=== PATIENT | male | born 1965 | race African-American/Black ===

== ENCOUNTER 2018-03-22 06:28 | Emergency (ER) | payer MEDICARE, MEDICAID ==
[~2018-03-22] VITALS: Ht 182.9 cm; Wt 104.0 kg
[~2018-03-22 06:28] MED LIST: ACET-2178 PO; KEPP500 PO; PANT40TA4 PO; PHEN100C12 MT; TEMOZOLOMIDE PO
[2018-03-22 09:10] VITALS: BP 130/83
== END 2018-03-22 09:15 | disposition home or self-care (01) ==
LOC: ER 06:28
DX: L29.9 Pruritus, unspecified (principal); Z88.0 Allergy status to penicillin; Z79.899 Other long term (current) drug therapy
CPT/HCPCS: 99283

== ENCOUNTER 2018-05-04 14:03 | Emergency (ER) | payer MEDICARE, MEDICAID ==
[~2018-05-04] VITALS: Ht 177.8 cm; Wt 90.0 kg
[2018-05-04] MEDS ORDERED: HYDROCODONE/ACETAMINOPHEN 5/325MG TABLET PO STA (15:09)
[2018-05-04 18:05] LABS: BASOPHILS % 0.6 % (0.0-2.0); EOSINOPHILS % 2.4 % (0.0-5.0); HEMATOCRIT. 38.1 % (42.0-52.0); HEMOGLOBIN. 12.3 g/dL (14.0-18.0); LYMPHOCYTES % 31.3 % (20.0-50.0); MEAN CORPUSCULAR HEMOGLOBIN 28.5 pg (28.0-32.0); MEAN CORPUSCULAR VOLUME 88.1 fL (80.0-94.0); MEAN PLATELET VOLUME 8.4 fl (7.4-10.4); MONOCYTES % 12.1 % (2.0-8.0); NEUTROPHILS % 53.6 % (40.0-76.0); PLATELET 207 x1000/uL (130-400); RED BLOOD CELL COUNT 4.32 mill/uL (4.7-6.1); RED CELL DISTRIBUTION WIDTH 14.8 % (11.6-14.6)
[2018-05-04 18:10] LABS: CHLORIDE 106 mEq/L (98-107)
[2018-05-04 18:11] LABS: INR 1.1
[2018-05-04 18:30] VITALS: BP 135/66
== END 2018-05-04 18:50 | disposition home or self-care (01) ==
LOC: ER 14:03
DX: R51 Headache (principal); I62.9 Nontraumatic intracranial hemorrhage, unspecified; R56.9 Unspecified convulsions; Z85.841 Personal history of malignant neoplasm of brain; Z98.890 Other specified postprocedural states; Z88.0 Allergy status to penicillin; Z79.899 Other long term (current) drug therapy
CPT/HCPCS: 36415; 99284

== ENCOUNTER 2018-05-13 01:20 | Emergency (ER) | payer MEDICARE, MEDICAID ==
[~2018-05-13] VITALS: Ht 185.4 cm; Wt 114.0 kg
[2018-05-13] MEDS ORDERED: VALACYCLOVIR HCL 500MG TABLET PO SCH (11:15)
[2018-05-13] MEDS ORDERED: HYDROCODONE/ACETAMINOPHEN 10/325MG TABLET PO ONE (11:15)
[2018-05-13] MEDS ORDERED: PREDNISONE 20MG TABLET PO ONE (11:30)
[2018-05-13 13:33] VITALS: BP 112/86
== END 2018-05-13 13:50 | disposition home or self-care (01) ==
LOC: ER 01:52
DX: B02.9 Zoster without complications (principal); Z98.890 Other specified postprocedural states; Z88.0 Allergy status to penicillin; Z79.899 Other long term (current) drug therapy
CPT/HCPCS: 99284; J7512

== ENCOUNTER 2018-05-30 16:28 | Inpatient (IN) | payer MEDICARE, MEDICAID ==
[~2018-05-30] VITALS: Ht 185.4 cm; Wt 132.5 kg
[2018-05-30] MEDS ORDERED: SODIUM CHLORIDE 0.9% 1,000 ML IV ONE (18:27)
[2018-05-30] MEDS ORDERED: LEVETIRACETAM 500MG PREMIX 100 ML IV ONE (18:30)
[2018-05-30 19:17] LABS: BASOPHILS % 0.2 % (0.0-2.0); CHLORIDE 104 mEq/L (98-107); EOSINOPHILS % 1.3 % (0.0-5.0); HEMATOCRIT. 39.3 % (42.0-52.0); HEMOGLOBIN. 13.1 g/dL (14.0-18.0); LYMPHOCYTES % 18.5 % (20.0-50.0); MEAN CORPUSCULAR HEMOGLOBIN 29.1 pg (28.0-32.0); MEAN CORPUSCULAR VOLUME 87.1 fL (80.0-94.0); MEAN PLATELET VOLUME 8.3 fl (7.4-10.4); MONOCYTES % 8.8 % (2.0-8.0); NEUTROPHILS % 71.2 % (40.0-76.0); PLATELET 275 x1000/uL (130-400); RED BLOOD CELL COUNT 4.51 mill/uL (4.7-6.1); RED CELL DISTRIBUTION WIDTH 15.4 % (11.6-14.6)
[2018-05-30] MEDS ORDERED: PHENYTOIN 100 MG/4 ML UDC NG ONE (19:45)
[2018-05-30] MEDS ORDERED: ACETAMINOPHEN 650MG/20.3ML UDC GT PRN (22:00)
[2018-05-30] MEDS ORDERED: DIPHENHYDRAMINE 50MG/ML VIAL IV PRN (22:00)
[2018-05-30] MEDS ORDERED: IPRATROPIUM/ALBUTEROL 0.5-3(2.5)MG/3ML NEB INH PRN (22:00)
[2018-05-30] MEDS ORDERED: CLONIDINE 0.1MG TABLET PO PRN (22:00)
[2018-05-30] MEDS ORDERED: DOCUSATE SODIUM 100MG CAPSULE PO PRN (22:00)
[2018-05-30] MEDS ORDERED: MAGNESIUM/ALUMINUM HYDROXIDE/SIMETHICONE 30ML UDC PO PRN (22:00)
[2018-05-30] MEDS ORDERED: ACETAMINOPHEN 650MG SUPP PR PRN (22:00)
[2018-05-30] MEDS ORDERED: GUAIFENESIN 200MG/10ML SUGAR FREE UDC PO PRN (22:00)
[2018-05-30] MEDS ORDERED: ONDANSETRON HCL 4MG/2ML INJ IV PRN (22:00)
[2018-05-30] MEDS ORDERED: ACETAMINOPHEN 325MG TABLET PO PRN (22:00)
[2018-05-30] MEDS ORDERED: HYDROCODONE/ACETAMINOPHEN 10/325MG TABLET PO PRN (22:00)
[2018-05-30] MEDS ORDERED: NA PHOS,M-B/NA PHOS,DI-BA ENEMA 118ML PR PRN (22:00)
[2018-05-30] MEDS ORDERED: LORAZEPAM 2MG/ML CPJ IV PRN (23:45)
[2018-05-31 01:00] VITALS: BP 115/77
[2018-05-31 04:19] VITALS: BP 110/80
[2018-05-31] MEDS: PHENYTOIN 100 MG/4 ML UDC PO SCH ×2 (05:50→13:34)
[2018-05-31] MEDS ORDERED: SODIUM CHLORIDE 0.9% INJ 3ML FLUSH IVF SCH (06:00)
[2018-05-31 06:52] LABS: BASOPHILS % 0.3 % (0.0-2.0); EOSINOPHILS % 1.9 % (0.0-5.0); HEMATOCRIT. 36.4 % (42.0-52.0); HEMOGLOBIN. 11.9 g/dL (14.0-18.0); LYMPHOCYTES % 24.7 % (20.0-50.0); MEAN CORPUSCULAR HEMOGLOBIN 28.2 pg (28.0-32.0); MEAN CORPUSCULAR VOLUME 86.4 fL (80.0-94.0); MEAN PLATELET VOLUME 7.9 fl (7.4-10.4); MONOCYTES % 10.8 % (2.0-8.0); NEUTROPHILS % 62.3 % (40.0-76.0); PLATELET 263 x1000/uL (130-400); RED BLOOD CELL COUNT 4.21 mill/uL (4.7-6.1); RED CELL DISTRIBUTION WIDTH 15.5 % (11.6-14.6)
[2018-05-31 07:06] LABS: CHLORIDE 106 mEq/L (98-107)
[2018-05-31 07:06] LABS: CLARITY URINE CLEAR (CLEAR); COLOR URINE YELLOW (YELLOW); KETONES URINE NEGATIVE (NEGATIVE); LEUKOCYTE ESTERASE URINE NEGATIVE (NEGATIVE); NITRITE URINE NEGATIVE (NEGATIVE); OCCULT BLOOD URINE NEGATIVE (NEGATIVE); PROTEIN URINE NEGATIVE (NEGATIVE); UROBILINOGEN URINE 0.2 E.U./dL (0.2-1.0)
[2018-05-31 07:18] LABS: *AMPHETAMINES SCREEN URINE NEGATIVE (NEGATIVE); *BARBITURATES SCREEN URINE NEGATIVE (NEGATIVE)
[2018-05-31 07:20] LABS: *BENZODIAZEPINES SCREEN URINE NEGATIVE (NEGATIVE); *COCAINE SCREEN URINE NEGATIVE (NEGATIVE); CANNABINOID URINE SCREEN NEGATIVE (NEGATIVE); METHADONE URINE SCREEN NEGATIVE (NEGATIVE); OPIATES URINE SCREEN NEGATIVE (NEGATIVE); PHENCYCLIDINE URINE SCREEN NEGATIVE (NEGATIVE)
[2018-05-31 07:43] LABS: LDL CHOLESTEROL 55 mg/dL (5-100)
[2018-05-31 07:46] LABS: HDL CHOLESTEROL 69 mg/dL (40-59)
[2018-05-31 08:00] VITALS: BP 117/82
[2018-05-31] MEDS ORDERED: LEVETIRACETAM 500MG/5ML CUP PO SCH (09:00)
[2018-05-31] MEDS: ENOXAPARIN 40MG/0.4ML SYR SUBCUT SCH ×2 (09:04→09:06)
[2018-05-31 12:00] VITALS: BP 111/68
[2018-05-31 13:16] VITALS: BP 111/68
== END 2018-05-31 14:45 | disposition home or self-care (01) | DRG 100 ==
LOC: ER 16:28 → 6WST 21:57 → EDBEDREQ 22:06 → EDBEDREQTM 22:06 → ENRESERV 23:40
PROVIDERS: ADMIT Family Medicine; ATTEND Family Medicine
DX: G40.909 Epilepsy, unspecified, not intractable, without status epilepticus (principal); G93.41 Metabolic encephalopathy; H54.3 Unqualified visual loss, both eyes; Z85.841 Personal history of malignant neoplasm of brain; Z82.3 Family history of stroke; Z86.19 Personal history of other infectious and parasitic diseases; Z88.0 Allergy status to penicillin; Z79.899 Other long term (current) drug therapy
CPT/HCPCS: 36415; 80061; 80185; 80305; 99285; J1650; J1953; J7030

== ENCOUNTER 2018-06-05 10:55 | Inpatient (IN) | payer MEDICARE, MEDICAID ==
[~2018-06-05] VITALS: Ht 177.8 cm; Wt 130.2 kg
[~2018-06-05 10:55] MED LIST changes: -KEPP500 PO; -PHEN100C12 MT
[2018-06-05] MEDS ORDERED: LEVETIRACETAM 500MG PREMIX 100 ML IV ONE (11:30)
[2018-06-05 11:48] LABS: BASOPHILS % 0.7 % (0.0-2.0); EOSINOPHILS % 1.2 % (0.0-5.0); HEMATOCRIT. 38.9 % (42.0-52.0); HEMOGLOBIN. 12.6 g/dL (14.0-18.0); LYMPHOCYTES % 18.7 % (20.0-50.0); MEAN CORPUSCULAR HEMOGLOBIN 28.4 pg (28.0-32.0); MEAN CORPUSCULAR VOLUME 87.5 fL (80.0-94.0); MEAN PLATELET VOLUME 7.9 fl (7.4-10.4); MONOCYTES % 7.7 % (2.0-8.0); NEUTROPHILS % 71.7 % (40.0-76.0); PLATELET 234 x1000/uL (130-400); RED BLOOD CELL COUNT 4.45 mill/uL (4.7-6.1); RED CELL DISTRIBUTION WIDTH 15.4 % (11.6-14.6)
[2018-06-05 11:51] LABS: CHLORIDE 107 mEq/L (98-107)
[2018-06-05 13:11] LABS: CLARITY URINE CLEAR (CLEAR); COLOR URINE YELLOW (YELLOW); KETONES URINE NEGATIVE (NEGATIVE); LEUKOCYTE ESTERASE URINE NEGATIVE (NEGATIVE); NITRITE URINE NEGATIVE (NEGATIVE); OCCULT BLOOD URINE NEGATIVE (NEGATIVE); PH URINE 7.5 (4.5-8.0); PROTEIN URINE 1+ (NEGATIVE); SPECIFIC GRAVITY URINE 1.012 (1.005-1.030); UROBILINOGEN URINE 0.2 E.U./dL (0.2-1.0)
[2018-06-05] MEDS ORDERED: HYDROCODONE/ACETAMINOPHEN 5/325MG TABLET PO ONE (14:00)
[2018-06-05] MEDS ORDERED: LORAZEPAM 0.5MG TABLET PO ONE (14:00)
[2018-06-05] MEDS ORDERED: ENOXAPARIN 40MG/0.4ML SYR SUBCUT SCH (15:15)
[2018-06-05] MEDS ORDERED: HYDRALAZINE 20MG/ML VIAL IV PRN (15:15)
[2018-06-05] MEDS ORDERED: HYDROCODONE/ACETAMINOPHEN 5/325MG TABLET PO PRN (15:15)
[2018-06-05] MEDS ORDERED: GUAIFENESIN 200MG/10ML SUGAR FREE UDC PO PRN (15:15)
[2018-06-05] MEDS ORDERED: DOCUSATE SODIUM 100MG CAPSULE PO PRN (15:15)
[2018-06-05] MEDS ORDERED: CLONIDINE 0.1MG TABLET PO PRN (15:15)
[2018-06-05] MEDS ORDERED: MAGNESIUM/ALUMINUM HYDROXIDE/SIMETHICONE 30ML UDC PO PRN (15:15)
[2018-06-05] MEDS ORDERED: NA PHOS,M-B/NA PHOS,DI-BA ENEMA 118ML PR PRN (15:15)
[2018-06-05] MEDS ORDERED: IPRATROPIUM/ALBUTEROL 0.5-3(2.5)MG/3ML NEB INH PRN (15:15)
[2018-06-05] MEDS ORDERED: HYDROMORPHONE HCL/PF 2MG/ML CPJ IV PRN (15:15)
[2018-06-05] MEDS ORDERED: DIPHENHYDRAMINE 50MG/ML VIAL IV PRN (15:15)
[2018-06-05] MEDS ORDERED: ONDANSETRON HCL 4MG/2ML INJ IV PRN (15:15)
[2018-06-05] MEDS ORDERED: ACETAMINOPHEN 325MG TABLET PO PRN (15:15)
[2018-06-05 20:00] VITALS: BP 108/62
[2018-06-05] MEDS: LORAZEPAM 2MG/ML CPJ IV PRN (21:25)
[2018-06-05] MEDS: ENOXAPARIN 30MG/0.3ML SYR SUBCUT SCH (21:25)
[2018-06-05] MEDS: SODIUM CHLORIDE 0.9% INJ 3ML FLUSH IVF SCH (21:26)
[2018-06-06] VITALS: BP 115/70
[2018-06-06 00:13] LABS: CREATINE KINASE 621 IU/L (39-308)
[2018-06-06 04:00] VITALS: BP 111/76
[2018-06-06] MEDS: LORAZEPAM 2MG/ML CPJ IV PRN ×2 (04:32→21:21)
[2018-06-06] MEDS: SODIUM CHLORIDE 0.9% INJ 3ML FLUSH IVF SCH ×3 (05:45→21:01)
[2018-06-06 07:23] LABS: BASOPHILS % 0.3 % (0.0-2.0); EOSINOPHILS % 1.4 % (0.0-5.0); HEMATOCRIT. 36.7 % (42.0-52.0); HEMOGLOBIN. 12.1 g/dL (14.0-18.0); LYMPHOCYTES % 26.4 % (20.0-50.0); MEAN CORPUSCULAR HEMOGLOBIN 28.4 pg (28.0-32.0); MEAN CORPUSCULAR VOLUME 86.1 fL (80.0-94.0); MEAN PLATELET VOLUME 8.2 fl (7.4-10.4); MONOCYTES % 9.3 % (2.0-8.0); NEUTROPHILS % 62.6 % (40.0-76.0); PLATELET 231 x1000/uL (130-400); RED BLOOD CELL COUNT 4.26 mill/uL (4.7-6.1)
[2018-06-06 07:31] LABS: CHLORIDE 108 mEq/L (98-107)
[2018-06-06 07:39] LABS: CREATINE KINASE 645 IU/L (39-308)
[2018-06-06 07:48] LABS: CREATINE KINASE MB FRACTION < 1.0 ng/mL (0.5-3.6)
[2018-06-06 08:00] VITALS: BP 127/87
[2018-06-06] MEDS: ASPIRIN 81MG EC TABLET PO SCH (09:44)
[2018-06-06] MEDS: ENOXAPARIN 30MG/0.3ML SYR SUBCUT SCH ×2 (09:49→21:00)
[2018-06-06 12:00] VITALS: BP 97/58
[2018-06-06] MEDS ORDERED: VALA500T55 MT (15:18)
[2018-06-06] MEDS ORDERED: RISP05 MT (15:18)
[2018-06-06] MEDS ORDERED: KEPP500 MT (15:18)
[2018-06-06] MEDS ORDERED: ROSU20TA MT (15:18)
[2018-06-06] MEDS ORDERED: PHEN300C6 MT (15:18)
[2018-06-06 16:00] VITALS: BP 102/60
[2018-06-06] MEDS: RISPERIDONE 0.5MG TABLET PO SCH (17:30)
[2018-06-06] MEDS: VALACYCLOVIR HCL 500MG TABLET PO SCH (17:39)
[2018-06-06 20:00] VITALS: BP 109/62
[2018-06-06] MEDS: ATORVASTATIN CALCIUM 40MG TABLET PO SCH (21:00)
[2018-06-06] MEDS ORDERED: PHENYTOIN SODIUM EXTENDED 100MG CAPSULE PO SCH (21:00)
[2018-06-06] MEDS ORDERED: LEVETIRACETAM 500MG TABLET PO SCH (21:00)
[2018-06-06] MEDS ORDERED: PHENYTOIN SODIUM MT SCH (21:00)
[2018-06-06] MEDS: LEVETIRACETAM 250MG TABLET PO SCH (21:00)
[2018-06-07] VITALS: BP 112/68
[2018-06-07 04:00] VITALS: BP 115/69
[2018-06-07] MEDS: SODIUM CHLORIDE 0.9% INJ 3ML FLUSH IVF SCH ×3 (06:43→21:10)
[2018-06-07 08:00] VITALS: BP 104/63
[2018-06-07] MEDS ORDERED: MEDICATION NOT ON FORMULARY EA (Rosuvastatin Calcium (Crestor) 1 TAB) MT SCH (09:00)
[2018-06-07] MEDS: VALACYCLOVIR HCL 500MG TABLET PO SCH (09:00)
[2018-06-07] MEDS: RISPERIDONE 0.5MG TABLET PO SCH ×2 (09:16→18:27)
[2018-06-07] MEDS: ASPIRIN 81MG EC TABLET PO SCH (09:16)
[2018-06-07] MEDS: LEVETIRACETAM 250MG TABLET PO SCH ×2 (09:16→21:09)
[2018-06-07] MEDS: ENOXAPARIN 30MG/0.3ML SYR SUBCUT SCH ×2 (09:17→21:09)
[2018-06-07 12:00] VITALS: BP 113/69
[2018-06-07 16:00] VITALS: BP 113/68
[2018-06-07 20:00] VITALS: BP 115/66
[2018-06-07] MEDS: ATORVASTATIN CALCIUM 40MG TABLET PO SCH (21:09)
[2018-06-07] MEDS: LORAZEPAM 2MG/ML CPJ IV PRN (21:11)
[2018-06-08] VITALS: BP 99/54
[2018-06-08 04:00] VITALS: BP 122/78
[2018-06-08] MEDS: SODIUM CHLORIDE 0.9% INJ 3ML FLUSH IVF SCH ×3 (06:19→22:13)
[2018-06-08 08:00] VITALS: BP 103/57
[2018-06-08] MEDS: RISPERIDONE 0.5MG TABLET PO SCH ×2 (08:43→17:53)
[2018-06-08] MEDS: ASPIRIN 81MG EC TABLET PO SCH (08:43)
[2018-06-08] MEDS: LEVETIRACETAM 250MG TABLET PO SCH ×2 (08:44→22:12)
[2018-06-08] MEDS: ENOXAPARIN 30MG/0.3ML SYR SUBCUT SCH ×2 (08:45→22:12)
[2018-06-08] MEDS: VALACYCLOVIR HCL 500MG TABLET PO SCH (09:00)
[2018-06-08 12:00] VITALS: BP 103/67
[2018-06-08 16:00] VITALS: BP 115/82
[2018-06-08 20:00] VITALS: BP 108/70
[2018-06-08] MEDS: ATORVASTATIN CALCIUM 40MG TABLET PO SCH (22:12)
[2018-06-09] VITALS: BP 106/63
[2018-06-09 04:00] VITALS: BP 109/57
[2018-06-09] MEDS: SODIUM CHLORIDE 0.9% INJ 3ML FLUSH IVF SCH ×3 (05:42→21:09)
[2018-06-09 08:00] VITALS: BP 99/65
[2018-06-09] MEDS: ASPIRIN 81MG EC TABLET PO SCH (11:20)
[2018-06-09] MEDS: ENOXAPARIN 30MG/0.3ML SYR SUBCUT SCH ×2 (11:20→21:09)
[2018-06-09] MEDS: RISPERIDONE 0.5MG TABLET PO SCH ×2 (11:20→18:51)
[2018-06-09] MEDS: VALACYCLOVIR HCL 500MG TABLET PO SCH (11:20)
[2018-06-09] MEDS: LEVETIRACETAM 250MG TABLET PO SCH ×2 (11:22→21:09)
[2018-06-09 12:00] VITALS: BP 92/62
[2018-06-09 16:00] VITALS: BP 92/51
[2018-06-09 20:00] VITALS: BP 106/59
[2018-06-09] MEDS: ATORVASTATIN CALCIUM 40MG TABLET PO SCH (21:09)
[2018-06-10] VITALS (7 sets, daily range): BP systolic 97–113; BP diastolic 58–69
[2018-06-10] MEDS: SODIUM CHLORIDE 0.9% INJ 3ML FLUSH IVF SCH ×2 (05:04→14:26)
[2018-06-10] MEDS: ASPIRIN 81MG EC TABLET PO SCH (08:40)
[2018-06-10] MEDS: ENOXAPARIN 30MG/0.3ML SYR SUBCUT SCH (08:41)
[2018-06-10] MEDS: LEVETIRACETAM 250MG TABLET PO SCH (08:41)
[2018-06-10] MEDS: RISPERIDONE 0.5MG TABLET PO SCH ×2 (08:41→19:43)
[2018-06-10] MEDS: VALACYCLOVIR HCL 500MG TABLET PO SCH (08:41)
== END 2018-06-10 20:35 | DRG 101 ==
LOC: ER 10:55 → 7WST 13:48 → ENRESERV 15:36
PROVIDERS: ADMIT Internal Medicine; ATTEND Internal Medicine
DX: G40.909 Epilepsy, unspecified, not intractable, without status epilepticus (principal); C71.9 Malignant neoplasm of brain, unspecified; H54.7 Unspecified visual loss; Z79.899 Other long term (current) drug therapy; Z85.841 Personal history of malignant neoplasm of brain; Z88.0 Allergy status to penicillin; Z92.3 Personal history of irradiation; Z92.21 Personal history of antineoplastic chemotherapy
CPT/HCPCS: 36415; 82550; 82553; 84484; 96365; 99285; C1893; J1650; J1953; J2060

== ENCOUNTER 2018-07-21 13:08 | Emergency (ER) | payer MEDICARE, MEDICAID ==
[~2018-07-21] VITALS: Ht 182.9 cm; Wt 100.0 kg
[~2018-07-21 13:08] MED LIST changes: +KEPP500 MT; +PHEN300C6 MT; +RISP05 MT; +ROSU20TA MT; +VALA500T55 MT
[2018-07-21] MEDS ORDERED: ACETAMINOPHEN 325MG TABLET PO ONE (13:45)
[2018-07-21 14:23] LABS: BASOPHILS % 0.4 % (0.0-2.0); EOSINOPHILS % 3.2 % (0.0-5.0); LYMPHOCYTES % 27.2 % (20.0-50.0); MEAN CORPUSCULAR VOLUME 86.4 fL (80.0-94.0); MEAN PLATELET VOLUME 8.2 fl (7.4-10.4); MONOCYTES % 10.3 % (2.0-8.0); NEUTROPHILS % 58.9 % (40.0-76.0); PLATELET 204 x1000/uL (130-400); RED BLOOD CELL COUNT 4.64 mill/uL (4.7-6.1); RED CELL DISTRIBUTION WIDTH 15.8 % (11.6-14.6)
[2018-07-21 14:26] LABS: CHLORIDE 110 mEq/L (98-107)
[2018-07-21 14:28] LABS: PARTIAL THROMBOPLASTIN TIME 29.9 sec (23.4-31.0); PROTHROMBIN TIME 10.7 sec (9.6-11.0)
[2018-07-21] MEDS ORDERED: PHENYTOIN SODIUM 1,000 MG in SODIUM CHLORIDE 0.9% 100 ML IV ONE (14:45)
[2018-07-21] MEDS ORDERED: PHENYTOIN SODIUM 1,000 MG in SODIUM CHLORIDE 0.9% 80 ML IV ONE (15:01)
[2018-07-21 17:10] VITALS: BP 128/87
== END 2018-07-21 18:02 | disposition home or self-care (01) ==
LOC: ER 13:08
DX: R51 Headache (principal); R03.0 Elevated blood-pressure reading, without diagnosis of hypertension; Z85.841 Personal history of malignant neoplasm of brain; I69.298 Other sequelae of other nontraumatic intracranial hemorrhage; G40.909 Epilepsy, unspecified, not intractable, without status epilepticus; R89.2 Abnormal level of other drugs, medicaments and biological substances in specimens from other organs, systems and tissues
CPT/HCPCS: 36415; 70450; 71045; 80053; 80185; 85025; 85610; 85730; 93005; 96365; 99284; J1165; J7050

== ENCOUNTER 2018-10-09 13:57 | Emergency (ER) | payer MEDICARE, MEDICAID ==
[~2018-10-09] VITALS: Ht 180.3 cm; Wt 110.0 kg
[~2018-10-09 13:57] MED LIST changes: -ROSU20TA MT; +ROSU20TA2 MT
[2018-10-09] MEDS ORDERED: METOCLOPRAMIDE HCL 10MG/2ML VIAL IV ONE (16:45)
[2018-10-09] MEDS ORDERED: SODIUM CHLORIDE 0.9% 100 ML IV ONE (16:45)
[2018-10-09] MEDS ORDERED: DIPHENHYDRAMINE 50MG/ML VIAL IV ONE (16:45)
[2018-10-09 17:24] LABS: BASOPHILS % 0.4 % (0.0-2.0); EOSINOPHILS % 0.6 % (0.0-5.0); HEMATOCRIT. 43.7 % (42.0-52.0); HEMOGLOBIN. 14.6 g/dL (14.0-18.0); LYMPHOCYTES % 18.1 % (20.0-50.0); MEAN CORPUSCULAR HEMOGLOBIN 28.9 pg (28.0-32.0); MEAN CORPUSCULAR VOLUME 86.6 fL (80.0-94.0); MEAN PLATELET VOLUME 7.9 fl (7.4-10.4); MONOCYTES % 6.8 % (2.0-8.0); NEUTROPHILS % 74.1 % (40.0-76.0); PLATELET 229 x1000/uL (130-400); RED BLOOD CELL COUNT 5.05 mill/uL (4.7-6.1)
[2018-10-09 17:28] LABS: CHLORIDE 102 mEq/L (98-107)
[2018-10-09 17:29] LABS: PROTHROMBIN TIME 10.7 sec (9.6-11.0)
[2018-10-09 21:17] VITALS: BP 138/85
== END 2018-10-09 22:00 | disposition home or self-care (01) ==
LOC: ER 13:57 → CANBEDREQ 20:01 → ER 22:00
DX: R51 Headache (principal); R03.0 Elevated blood-pressure reading, without diagnosis of hypertension; R90.82 White matter disease, unspecified; G31.9 Degenerative disease of nervous system, unspecified
CPT/HCPCS: 36415; 70450; 80053; 85025; 85610; 96374; 96375; 99284; J1200; J2765; J7050

== ENCOUNTER 2019-04-13 10:26 | Inpatient (IN) | payer MEDICARE, MEDICAID ==
[~2019-04-13] VITALS: Ht 185.4 cm; Wt 127.0 kg
[~2019-04-13 10:26] MED LIST changes: -ACET-2178 PO; +TOPUD PO
[2019-04-13] MEDS ORDERED: SODIUM CHLORIDE 0.9% 1,000 ML IV ONE (10:54)
[2019-04-13] MEDS ORDERED: LEVETIRACETAM 500MG PREMIX 100 ML IV ONE (11:00)
[2019-04-13 11:35] LABS: BASOPHILS % 0.4 % (0.0-2.0); EOSINOPHILS % 2.7 % (0.0-5.0); HEMATOCRIT. 39.5 % (42.0-52.0); LYMPHOCYTES % 26.3 % (20.0-50.0); MEAN CORPUSCULAR HEMOGLOBIN 27.4 pg (28.0-32.0); MEAN PLATELET VOLUME 8.3 fl (7.4-10.4); MONOCYTES % 8.9 % (2.0-8.0); NEUTROPHILS % 61.7 % (40.0-76.0); PLATELET 216 x1000/uL (130-400); RED BLOOD CELL COUNT 4.75 mill/uL (4.7-6.1); RED CELL DISTRIBUTION WIDTH 15.9 % (11.6-14.6)
[2019-04-13 11:40] LABS: CHLORIDE 108 mEq/L (98-107)
[2019-04-13 11:41] LABS: PROTHROMBIN TIME 10.6 sec (9.6-11.0)
[2019-04-13 11:50] LABS: CREATINE KINASE 662 IU/L (39-308)
[2019-04-13 13:23] LABS: CLARITY URINE CLEAR (CLEAR); COLOR URINE YELLOW (YELLOW); KETONES URINE NEGATIVE (NEGATIVE); LEUKOCYTE ESTERASE URINE NEGATIVE (NEGATIVE); NITRITE URINE NEGATIVE (NEGATIVE); OCCULT BLOOD URINE NEGATIVE (NEGATIVE); PROTEIN URINE NEGATIVE (NEGATIVE); SPECIFIC GRAVITY URINE 1.017 (1.005-1.030)
[2019-04-13] MEDS ORDERED: LORAZEPAM 2MG/ML CPJ IV PRN (18:00)
[2019-04-13] MEDS ORDERED: HYDROCODONE/ACETAMINOPHEN 5/325MG TABLET PO PRN (18:00)
[2019-04-13] MEDS ORDERED: ACETAMINOPHEN 325MG TABLET PO PRN (18:00)
[2019-04-13] MEDS ORDERED: ONDANSETRON HCL 4MG/2ML INJ IV PRN (18:00)
[2019-04-13] MEDS ORDERED: CLONIDINE 0.1MG TABLET PO PRN (18:00)
[2019-04-13] MEDS ORDERED: GUAIFENESIN 200MG/10ML SUGAR FREE UDC PO PRN (18:00)
[2019-04-13] MEDS ORDERED: PNEUMOCOCCAL 23-VAL P-SAC VAC 0.5 ML IM ONE (20:45)
[2019-04-13] MEDS ORDERED: INFLUENZA VIRUS VACCINE(AFLURIA) 0.5ML SYR IM ONE (20:45)
[2019-04-13 21:05] VITALS: BP 131/87
[2019-04-13] MEDS: PHENYTOIN SODIUM 100MG/2ML VIAL IV SCH (23:06)
[2019-04-13] MEDS: SODIUM CHLORIDE 0.45% 1,000 ML IV SCH (23:07)
[2019-04-14] VITALS: BP 144/72
[2019-04-14] MEDS: LEVETIRACETAM 500MG PREMIX 100 ML IV SCH ×3 (01:01→21:43)
[2019-04-14 04:00] VITALS: BP 140/89
[2019-04-14 06:48] LABS: BASOPHILS % 0.5 % (0.0-2.0); EOSINOPHILS % 1.6 % (0.0-5.0); HEMATOCRIT. 39.5 % (42.0-52.0); HEMOGLOBIN. 13.4 g/dL (14.0-18.0); LYMPHOCYTES % 19.6 % (20.0-50.0); MEAN CORPUSCULAR HEMOGLOBIN 28.4 pg (28.0-32.0); MONOCYTES % 8.6 % (2.0-8.0); NEUTROPHILS % 69.7 % (40.0-76.0); RED BLOOD CELL COUNT 4.71 mill/uL (4.7-6.1); RED CELL DISTRIBUTION WIDTH 15.7 % (11.6-14.6)
[2019-04-14 07:03] LABS: CHLORIDE 110 mEq/L (98-107)
[2019-04-14 08:00] VITALS: BP 106/76
[2019-04-14] MEDS: PHENYTOIN SODIUM 100MG/2ML VIAL IV SCH ×4 (08:01→21:43)
[2019-04-14] MEDS: PANTOPRAZOLE SODIUM 40 MG/VIAL IV SCH (08:42)
[2019-04-14] MEDS: ENOXAPARIN 40MG/0.4ML SYR SUBCUT SCH ×2 (08:43→21:44)
[2019-04-14] MEDS: SODIUM CHLORIDE 0.45% 1,000 ML IV SCH (08:43)
[2019-04-14 09:11] LABS: MEAN PLATELET VOLUME 8.5 fl (7.4-10.4); PLATELET 162 x1000/uL (130-400)
[2019-04-14 12:00] VITALS: BP 124/78
[2019-04-14 15:52] VITALS: BP 101/53
[2019-04-14 20:00] VITALS: BP 128/87
[2019-04-15] VITALS: BP 143/89
[2019-04-15] MEDS: SODIUM CHLORIDE 0.45% 1,000 ML IV SCH (00:04)
[2019-04-15 04:00] VITALS: BP 107/65
[2019-04-15] MEDS: PHENYTOIN SODIUM 100MG/2ML VIAL IV SCH ×2 (06:10→22:09)
[2019-04-15 08:00] VITALS: BP 115/81
[2019-04-15] MEDS: ENOXAPARIN 40MG/0.4ML SYR SUBCUT SCH (08:36)
[2019-04-15] MEDS: PANTOPRAZOLE SODIUM 40 MG/VIAL IV SCH (08:36)
[2019-04-15] MEDS: LEVETIRACETAM 500MG PREMIX 100 ML IV SCH (08:36)
[2019-04-15 12:00] VITALS: BP 94/61
[2019-04-15] MEDS ORDERED: PHENYTOIN SODIUM 1,000 MG in SODIUM CHLORIDE 0.9% 100 ML IV SCH (15:00)
[2019-04-15 16:00] VITALS: BP 92/64
[2019-04-15 20:00] VITALS: BP 138/78
[2019-04-15] MEDS: FAMOTIDINE 20MG TABLET PO SCH (21:14)
[2019-04-15] MEDS: LEVETIRACETAM 500MG/5ML CUP PO SCH (21:14)
[2019-04-15] MEDS: ENOXAPARIN 30MG/0.3ML SYR SUBCUT SCH (21:14)
[2019-04-16] VITALS: BP 105/68
[2019-04-16 04:00] VITALS: BP 98/67
[2019-04-16] MEDS: PHENYTOIN SODIUM 100MG/2ML VIAL IV SCH (06:12)
[2019-04-16 07:12] LABS: BASOPHILS % 0.5 % (0.0-2.0); EOSINOPHILS % 2.9 % (0.0-5.0); HEMATOCRIT. 40.6 % (42.0-52.0); HEMOGLOBIN. 13.2 g/dL (14.0-18.0); MEAN CORPUSCULAR HEMOGLOBIN 27.2 pg (28.0-32.0); MEAN CORPUSCULAR VOLUME 83.8 fL (80.0-94.0); MEAN PLATELET VOLUME 8.2 fl (7.4-10.4); MONOCYTES % 12.3 % (2.0-8.0); NEUTROPHILS % 57.3 % (40.0-76.0); PLATELET 203 x1000/uL (130-400); RED BLOOD CELL COUNT 4.85 mill/uL (4.7-6.1); RED CELL DISTRIBUTION WIDTH 15.6 % (11.6-14.6)
[2019-04-16 08:00] VITALS: BP 116/74
[2019-04-16 08:10] LABS: CHLORIDE 108 mEq/L (98-107)
[2019-04-16] MEDS: FAMOTIDINE 20MG TABLET PO SCH (08:22)
[2019-04-16] MEDS: ENOXAPARIN 30MG/0.3ML SYR SUBCUT SCH (08:22)
[2019-04-16] MEDS: LEVETIRACETAM 500MG/5ML CUP PO SCH (08:28)
[2019-04-16 11:41] VITALS: BP 116/74
[2019-04-16 12:00] VITALS: BP 113/73
[2019-04-16] MEDS ORDERED: PHENYTOIN SODIUM EXTENDED 100MG CAPSULE PO SCH (14:00)
== END 2019-04-16 15:55 | DRG 100 ==
LOC: ER 10:26 → 5WST 13:58 → EDBEDREQ 14:03 → ENRESERV 18:45 → 5WST 04-14 03:40
PROVIDERS: ADMIT Hospitalist; ATTEND Hospitalist
DX: G40.909 Epilepsy, unspecified, not intractable, without status epilepticus (principal); G93.41 Metabolic encephalopathy; E78.5 Hyperlipidemia, unspecified; F20.9 Schizophrenia, unspecified; I10 Essential (primary) hypertension; I25.10 Atherosclerotic heart disease of native coronary artery without angina pectoris; Z85.841 Personal history of malignant neoplasm of brain; Z88.0 Allergy status to penicillin; Z79.899 Other long term (current) drug therapy
CPT/HCPCS: 36415; 71045; 80048; 80053; 80185; 81003; 82140; 82550; 82962; 84484; 85025; 90686; 90732; 93005; 93970; 96365; 99285; C1893; C9113; J1165; J1650; J1953; J7030; J7050

== ENCOUNTER 2019-07-19 09:09 | Inpatient (IN) | payer MEDICARE, MEDICAID ==
[~2019-07-19] VITALS: Ht 193 cm; Wt 137.9 kg
[~2019-07-19 09:09] MED LIST changes: -TEMOZOLOMIDE PO; -VALA500T55 MT
[2019-07-19] MEDS ORDERED: SODIUM CHLORIDE 0.9% 1,000 ML IV ONE (09:55)
[2019-07-19] MEDS ORDERED: LEVETIRACETAM 500MG PREMIX 100 ML IV ONE ×2 (10:00→12:30)
[2019-07-19 10:29] LABS: CLARITY URINE CLEAR (CLEAR); COLOR URINE YELLOW (YELLOW); KETONES URINE NEGATIVE (NEGATIVE); LEUKOCYTE ESTERASE URINE NEGATIVE (NEGATIVE); NITRITE URINE NEGATIVE (NEGATIVE); OCCULT BLOOD URINE NEGATIVE (NEGATIVE); PH URINE 6.5 (4.5-8.0); PROTEIN URINE 1+ (NEGATIVE); SPECIFIC GRAVITY URINE 1.014 (1.005-1.030); UROBILINOGEN URINE 0.2 E.U./dL (0.2-1.0)
[2019-07-19 10:32] LABS: CHLORIDE 107 mEq/L (98-107)
[2019-07-19 10:37] LABS: ETHANOL BLOOD < 10 mg/dL
[2019-07-19 10:40] LABS: BASOPHILS % 0.4 % (0.0-2.0); EOSINOPHILS % 0.7 % (0.0-5.0); HEMATOCRIT. 40.1 % (42.0-52.0); LYMPHOCYTES % 15.7 % (20.0-50.0); MEAN CORPUSCULAR HEMOGLOBIN 27.2 pg (28.0-32.0); MEAN CORPUSCULAR VOLUME 83.6 fL (80.0-94.0); MEAN PLATELET VOLUME 8.3 fl (7.4-10.4); MONOCYTES % 11.6 % (2.0-8.0); NEUTROPHILS % 71.6 % (40.0-76.0); PLATELET 197 x1000/uL (130-400); RED BLOOD CELL COUNT 4.79 mill/uL (4.7-6.1); RED CELL DISTRIBUTION WIDTH 15.6 % (11.6-14.6)
[2019-07-19] MEDS ORDERED: PHENYTOIN SODIUM 100MG/2ML VIAL IV ONE (11:45)
[2019-07-19 12:23] LABS: *AMPHETAMINES SCREEN URINE NEGATIVE (NEGATIVE); *BARBITURATES SCREEN URINE NEGATIVE (NEGATIVE); *BENZODIAZEPINES SCREEN URINE PRESUMTIVE POSITIVE (NEGATIVE); *COCAINE SCREEN URINE NEGATIVE (NEGATIVE); METHADONE URINE SCREEN NEGATIVE (NEGATIVE); OPIATES URINE SCREEN NEGATIVE (NEGATIVE)
[2019-07-19 12:24] LABS: CANNABINOID URINE SCREEN NEGATIVE (NEGATIVE); PHENCYCLIDINE URINE SCREEN NEGATIVE (NEGATIVE)
[2019-07-19] MEDS ORDERED: LORAZEPAM 2MG/ML CPJ IV ONE (12:30)
[2019-07-19] MEDS ORDERED: HYDROCODONE/ACETAMINOPHEN 5/325MG TABLET PO PRN (12:30)
[2019-07-19] MEDS ORDERED: ENOXAPARIN 40MG/0.4ML SYR SUBCUT SCH (12:30)
[2019-07-19] MEDS ORDERED: DOCUSATE SODIUM 100MG CAPSULE PO PRN (12:30)
[2019-07-19] MEDS ORDERED: ONDANSETRON HCL 4MG/2ML INJ IV PRN (12:30)
[2019-07-19] MEDS ORDERED: ENOXAPARIN 30MG/0.3ML SYR SUBCUT SCH (13:00)
[2019-07-19] MEDS: SODIUM CHLORIDE 0.45% 1,000 ML IV SCH (13:00)
[2019-07-19] MEDS ORDERED: PHENYTOIN SODIUM 1,000 MG in SODIUM CHLORIDE 0.9% 100 ML IV SCH (13:00)
[2019-07-19] MEDS: LEVETIRACETAM 500MG PREMIX 100 ML IV SCH (21:00)
[2019-07-20] VITALS (18 sets, daily range): BP systolic 116–146; BP diastolic 74–99
[2019-07-20] MEDS: SODIUM CHLORIDE 0.45% 1,000 ML IV SCH ×2 (02:20→05:00)
[2019-07-20 06:00] LABS: BASOPHILS % 0.4 % (0.0-2.0); EOSINOPHILS % 1.1 % (0.0-5.0); HEMATOCRIT. 41.5 % (42.0-52.0); HEMOGLOBIN. 13.7 g/dL (14.0-18.0); LYMPHOCYTES % 18.2 % (20.0-50.0); MEAN CORPUSCULAR HEMOGLOBIN 27.1 pg (28.0-32.0); MEAN CORPUSCULAR VOLUME 82.3 fL (80.0-94.0); MEAN PLATELET VOLUME 8.4 fl (7.4-10.4); MONOCYTES % 8.7 % (2.0-8.0); NEUTROPHILS % 71.6 % (40.0-76.0); PLATELET 208 x1000/uL (130-400); RED BLOOD CELL COUNT 5.04 mill/uL (4.7-6.1); RED CELL DISTRIBUTION WIDTH 15.4 % (11.6-14.6)
[2019-07-20 06:01] LABS: CHLORIDE 108 mEq/L (98-107)
[2019-07-20] MEDS ORDERED: LORAZEPAM 2MG/ML CPJ ONE (06:38)
[2019-07-20] MEDS: PHENYTOIN SODIUM 100MG/2ML VIAL IV SCH ×3 (08:50→17:57)
[2019-07-20] MEDS: LEVETIRACETAM 500MG PREMIX 100 ML IV SCH ×2 (08:50→20:54)
[2019-07-20] MEDS: LORAZEPAM 2MG/ML CPJ IV PRN ×2 (09:43→17:57)
[2019-07-20] MEDS ORDERED: LORAZEPAM 2MG/ML CPJ IV ONE (10:15)
[2019-07-20] MEDS ORDERED: PHENYTOIN SODIUM 500 MG in SODIUM CHLORIDE 0.9% 50 ML IV ONE (11:30)
[2019-07-20] MEDS ORDERED: PROPOFOL 10MG/ML 100ML 100 ML IV ONE (12:15)
[2019-07-20] MEDS ORDERED: SUCCINYLCHOLINE CHLORIDE 200MG/10ML IV ONE (12:15)
[2019-07-20] MEDS ORDERED: ETOMIDATE 2MG/ML 10ML VIAL IV ONE (12:15)
[2019-07-20] MEDS ORDERED: MIDAZOLAM HCL 50 MG in DEXTROSE 5% WATER 40 ML IV ONE (13:00)
[2019-07-20] MEDS ORDERED: MIDAZOLAM HCL 50 MG in DEXTROSE 5% WATER 40 ML IV NR (13:30)
[2019-07-20 13:37] LABS: BG BASE EXCESS -1.3 mmol/L (-2.0-2.0); BG CARBOXYHEMOGLOBIN 0.4 % (0.5-1.5); BG DEOXYHEMOGLOBIN 3.6 % (0.0-5.0); BG FRACTION INSPIRED OXYGEN 100; BG METHEMOGLOBIN 0.3 % (0.0-1.5); BG OXYGEN SATURATION 96.4 % (92.0-98.5); BG OXYHEMOGLOBIN 95.7 % (94.0-97.0); BG PCO2 42.5 mmHg (35.0-45.0); BG PO2 84.7 mmHg (75.0-100.0); BG SAMPLE SITE RIGHT RADIAL; BG TIDAL VOLUME(mL) 550 mL; BG TOTAL HEMOGLOBIN 14.5 g/dL (12.0-18.0); BG VENT MODE VENT - A/C; BG VENT RATE 16 set
[2019-07-20] MEDS ORDERED: FENTANYL CITRATE/PF 1,000 MCG in SODIUM CHLORIDE 0.9% 80 ML IV PRN (14:00)
[2019-07-20] MEDS ORDERED: MIDAZOLAM HCL 100 MG in DEXT 5% WATER 80 ML IV PRN ×2 (14:00→18:30)
[2019-07-20] MEDS ORDERED: METRONIDAZOLE 500MG TABLET PO SCH (14:20)
[2019-07-20] MEDS ORDERED: LEVOFLOXACIN 750MG PREMIX 150 ML IV SCH (14:30)
[2019-07-20] MEDS: FENTANYL CITRATE/PF 1,000 MCG in SODIUM CHLORIDE 0.9% 80 ML IV PRN (18:00)
[2019-07-20] MEDS: PROPOFOL 10MG/ML 100ML 100 ML IV PRN ×3 (19:33→23:00)
[2019-07-20 19:43] LABS: HEMATOCRIT 44.1 % (42.0-52.0); HEMOGLOBIN 14.6 g/dL (14.0-18.0); MEAN CORPUSCULAR HEMOGLOBIN 27.5 pg (28.0-32.0); MEAN CORPUSCULAR VOLUME 83.1 fL (80.0-94.0); PLATELET 228 x1000/uL (130-400); RED BLOOD CELL COUNT 5.31 mill/uL (4.7-6.1); RED CELL DISTRIBUTION WIDTH 16.1 % (11.6-14.6)
[2019-07-20] MEDS: PANTOPRAZOLE SODIUM 40 MG/VIAL IV SCH (20:46)
[2019-07-20] MEDS: METRONIDAZOLE 500MG TABLET PO SCH (21:52)
[2019-07-21] VITALS (57 sets, daily range): BP systolic 109–145; BP diastolic 66–82
[2019-07-21] MEDS: PROPOFOL 10MG/ML 100ML 100 ML IV PRN ×10 (00:59→21:22)
[2019-07-21] MEDS: SODIUM CHLORIDE 0.45% 1,000 ML IV SCH ×2 (05:00→16:18)
[2019-07-21] MEDS: METRONIDAZOLE 500MG TABLET PO SCH ×2 (06:14→14:00)
[2019-07-21] MEDS: FENTANYL CITRATE/PF 1,000 MCG in SODIUM CHLORIDE 0.9% 80 ML IV PRN ×2 (08:06→08:10)
[2019-07-21] MEDS: LEVETIRACETAM 500MG PREMIX 100 ML IV SCH ×2 (08:20→21:40)
[2019-07-21] MEDS: PHENYTOIN SODIUM 100MG/2ML VIAL IV SCH ×3 (08:21→16:17)
[2019-07-21] MEDS: PANTOPRAZOLE SODIUM 40 MG/VIAL IV SCH ×2 (08:21→21:39)
[2019-07-21 08:40] LABS: BG BASE EXCESS -0.8 mmol/L (-2.0-2.0); BG CARBOXYHEMOGLOBIN 0.4 % (0.5-1.5); BG DEOXYHEMOGLOBIN 0.5 % (0.0-5.0); BG FRACTION INSPIRED OXYGEN 100; BG HCO3 ACT 23.9 mmol/L (22.0-26.0); BG METHEMOGLOBIN 0.1 % (0.0-1.5); BG OXYGEN SATURATION 99.5 % (92.0-98.5); BG PCO2 39.4 mmHg (35.0-45.0); BG SAMPLE SITE RIGHT RADIAL; BG TIDAL VOLUME(mL) 550 mL; BG TOTAL HEMOGLOBIN 13.3 g/dL (12.0-18.0); BG VENT MODE VENT - A/C; BG VENT RATE 16 set
[2019-07-21] MEDS ORDERED: LEVOFLOXACIN 750MG PREMIX 150 ML IV SCH (14:30)
[2019-07-21] MEDS: LORAZEPAM 2MG/ML CPJ IV PRN ×2 (16:17→20:39)
[2019-07-21] MEDS: METRONIDAZOLE 500 MG PREMIX 100 ML IV SCH (20:30)
[2019-07-21] MEDS: ACETAMINOPHEN 325MG TABLET PO PRN (23:46)
[2019-07-22] VITALS (96 sets, daily range): BP systolic 106–153; BP diastolic 55–91
[2019-07-22] MEDS: PROPOFOL 10MG/ML 100ML 100 ML IV PRN ×10 (00:06→21:59)
[2019-07-22] MEDS: LORAZEPAM 2MG/ML CPJ IV PRN ×3 (00:42→23:05)
[2019-07-22] MEDS: METRONIDAZOLE 500 MG PREMIX 100 ML IV SCH ×2 (03:48→12:41)
[2019-07-22] MEDS: SODIUM CHLORIDE 0.45% 1,000 ML IV SCH (06:40)
[2019-07-22] MEDS: DOCUSATE SODIUM SUGAR FREE 100MG/10ML UDC NG SCH (09:54)
[2019-07-22] MEDS: PANTOPRAZOLE SODIUM 40 MG/VIAL IV SCH ×2 (09:54→21:40)
[2019-07-22] MEDS: LEVETIRACETAM 500MG PREMIX 100 ML IV SCH (09:54)
[2019-07-22] MEDS: PHENYTOIN SODIUM 100MG/2ML VIAL IV SCH ×3 (09:54→17:32)
[2019-07-22 10:35] LABS: BG BASE EXCESS -2.5 mmol/L (-2.0-2.0); BG CARBOXYHEMOGLOBIN 0.4 % (0.5-1.5); BG FRACTION INSPIRED OXYGEN 80; BG HCO3 ACT 21.4 mmol/L (22.0-26.0); BG METHEMOGLOBIN 0.2 % (0.0-1.5); BG OXYHEMOGLOBIN 97.4 % (94.0-97.0); BG PCO2 34.5 mmHg (35.0-45.0); BG PH 7.411 (7.350-7.450); BG PO2 103.6 mmHg (75.0-100.0); BG SAMPLE SITE RIGHT RADIAL; BG TIDAL VOLUME(mL) 550 mL; BG TOTAL HEMOGLOBIN 13.7 g/dL (12.0-18.0); BG VENT MODE VENT - A/C; BG VENT RATE 16 set
[2019-07-22] MEDS: LEVETIRACETAM 1,000 MG in SODIUM CHLORIDE 0.9% 100 ML IV SCH ×2 (12:00→20:47)
[2019-07-22] MEDS: ACETAMINOPHEN 325MG TABLET PO PRN ×2 (12:39→17:33)
[2019-07-22] MEDS: DEXT 5%/0.45% NACL 1000ML 1,000 ML IV SCH ×2 (12:47→23:50)
[2019-07-22] MEDS: FENTANYL CITRATE/PF 1,000 MCG in SODIUM CHLORIDE 0.9% 80 ML IV PRN (16:02)
[2019-07-22] MEDS: CLINDAMYCIN 600MG PREMIX 50 ML IV SCH ×2 (16:35→22:26)
[2019-07-22] MEDS: AZTREONAM 1 G in DEXTROSE 5% WATER 50 ML IV SCH ×2 (16:35→21:42)
[2019-07-23] VITALS (62 sets, daily range): BP systolic 108–174; BP diastolic 41–132
[2019-07-23] MEDS: PROPOFOL 10MG/ML 100ML 100 ML IV PRN ×7 (01:55→22:03)
[2019-07-23] MEDS: LORAZEPAM 2MG/ML CPJ IV PRN ×2 (03:56→08:30)
[2019-07-23] MEDS: ACETAMINOPHEN 325MG TABLET PO PRN (03:56)
[2019-07-23] MEDS: AZTREONAM 1 G in DEXTROSE 5% WATER 50 ML IV SCH ×3 (05:33→21:19)
[2019-07-23] MEDS: CLINDAMYCIN 600MG PREMIX 50 ML IV SCH ×3 (06:18→22:48)
[2019-07-23] MEDS: PHENYTOIN SODIUM 100MG/2ML VIAL IV SCH ×4 (08:29→18:55)
[2019-07-23] MEDS: PANTOPRAZOLE SODIUM 40 MG/VIAL IV SCH ×2 (08:30→20:35)
[2019-07-23] MEDS: DOCUSATE SODIUM SUGAR FREE 100MG/10ML UDC NG SCH (08:30)
[2019-07-23] MEDS: LEVETIRACETAM 1,000 MG in SODIUM CHLORIDE 0.9% 100 ML IV SCH (08:35)
[2019-07-23 08:42] LABS: BG BASE EXCESS -2.4 mmol/L (-2.0-2.0); BG DEOXYHEMOGLOBIN 1.5 % (0.0-5.0); BG FRACTION INSPIRED OXYGEN 80; BG HCO3 ACT 22.6 mmol/L (22.0-26.0); BG OXYGEN SATURATION 98.5 % (92.0-98.5); BG OXYHEMOGLOBIN 98.5 % (94.0-97.0); BG PCO2 39.9 mmHg (35.0-45.0); BG PH 7.371 (7.350-7.450); BG PO2 125.9 mmHg (75.0-100.0); BG SAMPLE SITE RIGHT RADIAL; BG TIDAL VOLUME(mL) 550 mL; BG TOTAL HEMOGLOBIN 13.4 g/dL (12.0-18.0); BG VENT MODE VENT - A/C; BG VENT RATE 16 set
[2019-07-23] MEDS ORDERED: LIDOCAINE HCL 1% 20ML VIAL (Pyxis) INJ ONE (10:08)
[2019-07-23] MEDS ORDERED: LEVETIRACETAM 1,500 MG in SODIUM CHLORIDE 0.9% 100 ML IV SCH (21:00)
[2019-07-23] MEDS: DEXT 5%/0.45% NACL 1000ML 1,000 ML IV SCH (21:19)
[2019-07-23] MEDS: LEVETIRACETAM 1,500 MG in SODIUM CHLORIDE 0.9% 100 ML IV SCH (22:00)
[2019-07-24] VITALS (49 sets, daily range): BP systolic 93–165; BP diastolic 50–140
[2019-07-24] MEDS: PROPOFOL 10MG/ML 100ML 100 ML IV PRN ×10 (00:30→23:18)
[2019-07-24] MEDS: FENTANYL CITRATE/PF 1,000 MCG in SODIUM CHLORIDE 0.9% 80 ML IV PRN (05:08)
[2019-07-24] MEDS: AZTREONAM 1 G in DEXTROSE 5% WATER 50 ML IV SCH ×3 (05:08→21:46)
[2019-07-24] MEDS: CLINDAMYCIN 600MG PREMIX 50 ML IV SCH ×2 (06:06→15:23)
[2019-07-24] MEDS: LORAZEPAM 2MG/ML CPJ IV PRN ×2 (08:48→20:10)
[2019-07-24] MEDS: DOCUSATE SODIUM SUGAR FREE 100MG/10ML UDC NG SCH (08:49)
[2019-07-24] MEDS: PANTOPRAZOLE SODIUM 40 MG/VIAL IV SCH ×2 (08:49→21:47)
[2019-07-24] MEDS: PHENYTOIN 100 MG/4 ML UDC NG SCH ×2 (08:49→18:13)
[2019-07-24 08:57] LABS: BG BASE EXCESS 0.8 mmol/L (-2.0-2.0); BG CARBOXYHEMOGLOBIN 0.3 % (0.5-1.5); BG DEOXYHEMOGLOBIN 4.6 % (0.0-5.0); BG FRACTION INSPIRED OXYGEN 80; BG HCO3 ACT 25.7 mmol/L (22.0-26.0); BG METHEMOGLOBIN 0.3 % (0.0-1.5); BG OXYGEN SATURATION 95.4 % (92.0-98.5); BG OXYHEMOGLOBIN 94.8 % (94.0-97.0); BG PCO2 41.8 mmHg (35.0-45.0); BG PH 7.406 (7.350-7.450); BG PO2 73.1 mmHg (75.0-100.0); BG SAMPLE SITE RIGHT RADIAL; BG TIDAL VOLUME(mL) 550 mL; BG TOTAL HEMOGLOBIN 12.7 g/dL (12.0-18.0); BG VENT MODE VENT - A/C; BG VENT RATE 16 set
[2019-07-24] MEDS: LEVETIRACETAM 1,500 MG in SODIUM CHLORIDE 0.9% 100 ML IV SCH ×2 (12:49→21:47)
[2019-07-24] MEDS: METHYLPREDNISOLONE SOD SUCC 40 MG/ML VIAL IV SCH (18:13)
[2019-07-24] MEDS: CLONAZEPAM 0.5MG TABLET PO SCH (23:12)
[2019-07-25] VITALS (80 sets, daily range): BP systolic 91–141; BP diastolic 54–78
[2019-07-25] MEDS: FENTANYL CITRATE/PF 1,000 MCG in SODIUM CHLORIDE 0.9% 80 ML IV PRN ×2 (00:21→17:55)
[2019-07-25] MEDS: CLINDAMYCIN 600MG PREMIX 50 ML IV SCH ×4 (00:56→22:04)
[2019-07-25] MEDS: PROPOFOL 10MG/ML 100ML 100 ML IV PRN ×9 (03:26→22:09)
[2019-07-25] MEDS: ACETAMINOPHEN 325MG TABLET PO PRN ×3 (04:45→20:45)
[2019-07-25] MEDS: DEXT 5%/0.45% NACL 1000ML 1,000 ML IV SCH ×2 (05:29→18:03)
[2019-07-25 06:12] LABS: BASOPHILS % 0.3 % (0.0-2.0); EOSINOPHILS % 0.8 % (0.0-5.0); MEAN CORPUSCULAR HEMOGLOBIN 27.4 pg (28.0-32.0); MEAN CORPUSCULAR VOLUME 82.3 fL (80.0-94.0); MEAN PLATELET VOLUME 8.7 fl (7.4-10.4); MONOCYTES % 10.4 % (2.0-8.0); NEUTROPHILS % 73.5 % (40.0-76.0); PLATELET 189 x1000/uL (130-400); RED BLOOD CELL COUNT 4.37 mill/uL (4.7-6.1); RED CELL DISTRIBUTION WIDTH 15.3 % (11.6-14.6)
[2019-07-25 06:16] LABS: CHLORIDE 105 mEq/L (98-107)
[2019-07-25] MEDS: AZTREONAM 1 G in DEXTROSE 5% WATER 50 ML IV SCH ×3 (06:31→21:15)
[2019-07-25 08:47] LABS: BG CARBOXYHEMOGLOBIN 0.3 % (0.5-1.5); BG DEOXYHEMOGLOBIN 4.3 % (0.0-5.0); BG HCO3 ACT 25.2 mmol/L (22.0-26.0); BG OXYGEN SATURATION 95.7 % (92.0-98.5); BG OXYHEMOGLOBIN 95.4 % (94.0-97.0); BG PCO2 38.5 mmHg (35.0-45.0); BG PH 7.433 (7.350-7.450); BG PO2 78.6 mmHg (75.0-100.0); BG SAMPLE SITE RIGHT RADIAL; BG TIDAL VOLUME(mL) 550 mL; BG TOTAL HEMOGLOBIN 12.7 g/dL (12.0-18.0); BG VENT MODE VENT - A/C; BG VENT RATE 16 set
[2019-07-25] MEDS: DOCUSATE SODIUM SUGAR FREE 100MG/10ML UDC NG SCH (08:47)
[2019-07-25] MEDS: PHENYTOIN 100 MG/4 ML UDC NG SCH (08:47)
[2019-07-25] MEDS: PANTOPRAZOLE SODIUM 40 MG/VIAL IV SCH ×2 (08:47→20:46)
[2019-07-25] MEDS: CLONAZEPAM 0.5MG TABLET PO SCH ×2 (08:47→18:02)
[2019-07-25] MEDS: METHYLPREDNISOLONE SOD SUCC 40 MG/ML VIAL IV SCH (08:47)
[2019-07-25] MEDS: LEVETIRACETAM 1,500 MG in SODIUM CHLORIDE 0.9% 100 ML IV SCH ×2 (09:38→20:45)
[2019-07-25] MEDS: VALPROATE SODIUM 500 MG in SODIUM CHLORIDE 0.9% 100 ML IV SCH ×2 (16:49→23:31)
[2019-07-26] VITALS (76 sets, daily range): BP systolic 88–146; BP diastolic 24–107
[2019-07-26] MEDS: PROPOFOL 10MG/ML 100ML 100 ML IV PRN ×6 (00:48→13:04)
[2019-07-26] MEDS: AZTREONAM 1 G in DEXTROSE 5% WATER 50 ML IV SCH ×3 (05:15→20:34)
[2019-07-26] MEDS: DEXT 5%/0.45% NACL 1000ML 1,000 ML IV SCH ×2 (05:56→18:06)
[2019-07-26] MEDS: LORAZEPAM 2MG/ML CPJ IV PRN ×2 (07:53→13:03)
[2019-07-26] MEDS: CLINDAMYCIN 600MG PREMIX 50 ML IV SCH ×3 (07:53→22:46)
[2019-07-26] MEDS: DOCUSATE SODIUM SUGAR FREE 100MG/10ML UDC NG SCH (07:54)
[2019-07-26] MEDS: CLONAZEPAM 0.5MG TABLET PO SCH ×2 (07:54→16:57)
[2019-07-26] MEDS: PANTOPRAZOLE SODIUM 40 MG/VIAL IV SCH ×2 (07:54→20:34)
[2019-07-26 08:20] LABS: BG BASE EXCESS 0.5 mmol/L (-2.0-2.0); BG HCO3 ACT 25.2 mmol/L (22.0-26.0); BG METHEMOGLOBIN 0.2 % (0.0-1.5); BG OXYHEMOGLOBIN 98.8 % (94.0-97.0); BG PCO2 40.8 mmHg (35.0-45.0); BG PH 7.409 (7.350-7.450); BG PO2 157.7 mmHg (75.0-100.0); BG SAMPLE SITE RIGHT RADIAL; BG TIDAL VOLUME(mL) 550 mL; BG TOTAL HEMOGLOBIN 12.3 g/dL (12.0-18.0); BG VENT MODE VENT - A/C; BG VENT RATE 16 set
[2019-07-26] MEDS: VALPROATE SODIUM 500 MG in SODIUM CHLORIDE 0.9% 100 ML IV SCH (09:01)
[2019-07-26] MEDS: LEVETIRACETAM 1,500 MG in SODIUM CHLORIDE 0.9% 100 ML IV SCH ×2 (09:02→20:33)
[2019-07-26] MEDS: FENTANYL CITRATE/PF 1,000 MCG in SODIUM CHLORIDE 0.9% 80 ML IV PRN ×2 (10:03→19:53)
[2019-07-26] MEDS: MIDAZOLAM HCL 100 MG in DEXT 5% WATER 80 ML IV PRN ×2 (14:01→22:16)
[2019-07-26] MEDS: VALPROATE SODIUM 750 MG in SODIUM CHLORIDE 0.9% 100 ML IV SCH (20:34)
[2019-07-26] MEDS: ACETAMINOPHEN 325MG TABLET PO PRN (21:03)
[2019-07-27] VITALS (63 sets, daily range): BP systolic 102–141; BP diastolic 49–90
[2019-07-27] MEDS: FENTANYL CITRATE/PF 1,000 MCG in SODIUM CHLORIDE 0.9% 80 ML IV PRN ×2 (04:37→12:57)
[2019-07-27] MEDS: AZTREONAM 1 G in DEXTROSE 5% WATER 50 ML IV SCH ×2 (04:50→13:06)
[2019-07-27] MEDS: CLINDAMYCIN 600MG PREMIX 50 ML IV SCH ×2 (04:50→15:07)
[2019-07-27 04:52] LABS: BASOPHILS % 0.6 % (0.0-2.0); EOSINOPHILS % 4.6 % (0.0-5.0); HEMATOCRIT. 34.3 % (42.0-52.0); HEMOGLOBIN. 11.5 g/dL (14.0-18.0); LYMPHOCYTES % 14.9 % (20.0-50.0); MEAN CORPUSCULAR HEMOGLOBIN 27.5 pg (28.0-32.0); MEAN CORPUSCULAR VOLUME 81.6 fL (80.0-94.0); MEAN PLATELET VOLUME 8.2 fl (7.4-10.4); MONOCYTES % 11.9 % (2.0-8.0); PLATELET 242 x1000/uL (130-400); RED CELL DISTRIBUTION WIDTH 14.9 % (11.6-14.6)
[2019-07-27 05:02] LABS: CHLORIDE 107 mEq/L (98-107)
[2019-07-27 05:09] LABS: PHOSPHORUS 2.4 mg/dL (2.5-4.9)
[2019-07-27] MEDS: ACETAMINOPHEN 325MG TABLET PO PRN ×2 (05:33→20:53)
[2019-07-27] MEDS: LORAZEPAM 2MG/ML CPJ IV PRN ×7 (05:49→23:35)
[2019-07-27] MEDS: VALPROATE SODIUM 750 MG in SODIUM CHLORIDE 0.9% 100 ML IV SCH ×2 (08:13→20:52)
[2019-07-27] MEDS: LEVETIRACETAM 1,500 MG in SODIUM CHLORIDE 0.9% 100 ML IV SCH ×2 (08:14→20:52)
[2019-07-27] MEDS: PANTOPRAZOLE SODIUM 40 MG/VIAL IV SCH (08:14)
[2019-07-27] MEDS: CLONAZEPAM 0.5MG TABLET PO SCH ×2 (08:14→17:27)
[2019-07-27] MEDS: DOCUSATE SODIUM SUGAR FREE 100MG/10ML UDC NG SCH (08:14)
[2019-07-27] MEDS: DEXT 5%/0.45% NACL 1000ML 1,000 ML IV SCH ×2 (08:52→23:35)
[2019-07-27] MEDS: MIDAZOLAM HCL 100 MG in DEXT 5% WATER 80 ML IV PRN ×2 (08:52→12:57)
[2019-07-28] VITALS (75 sets, daily range): BP systolic 98–159; BP diastolic 58–94
[2019-07-28] MEDS: MIDAZOLAM HCL 100 MG in DEXT 5% WATER 80 ML IV PRN ×4 (00:19→20:59)
[2019-07-28] MEDS: FENTANYL CITRATE/PF 1,000 MCG in SODIUM CHLORIDE 0.9% 80 ML IV PRN ×3 (01:11→22:11)
[2019-07-28] MEDS: ACETAMINOPHEN 325MG TABLET PO PRN (04:14)
[2019-07-28 05:58] LABS: CHLORIDE 107 mEq/L (98-107)
[2019-07-28 08:43] LABS: BG BASE EXCESS -2.7 mmol/L (-2.0-2.0); BG CARBOXYHEMOGLOBIN 0.4 % (0.5-1.5); BG DEOXYHEMOGLOBIN 3.1 % (0.0-5.0); BG FRACTION INSPIRED OXYGEN 60; BG HCO3 ACT 20.6 mmol/L (22.0-26.0); BG OXYGEN SATURATION 96.9 % (92.0-98.5); BG OXYHEMOGLOBIN 96.5 % (94.0-97.0); BG PO2 88.3 mmHg (75.0-100.0); BG SAMPLE SITE RIGHT RADIAL; BG TIDAL VOLUME(mL) 550 mL; BG TOTAL HEMOGLOBIN 11.9 g/dL (12.0-18.0); BG VENT MODE VENT - A/C; BG VENT RATE 16 set
[2019-07-28] MEDS: VALPROATE SODIUM 750 MG in SODIUM CHLORIDE 0.9% 100 ML IV SCH (08:49)
[2019-07-28] MEDS: LEVETIRACETAM 1,500 MG in SODIUM CHLORIDE 0.9% 100 ML IV SCH ×2 (08:49→21:16)
[2019-07-28] MEDS: CLONAZEPAM 0.5MG TABLET PO SCH ×2 (08:50→17:06)
[2019-07-28] MEDS: LORAZEPAM 2MG/ML CPJ IV PRN ×5 (08:50→21:16)
[2019-07-28] MEDS: PANTOPRAZOLE SODIUM 40 MG/VIAL IV SCH (08:50)
[2019-07-28] MEDS: DOCUSATE SODIUM SUGAR FREE 100MG/10ML UDC NG SCH (08:50)
[2019-07-28] MEDS ORDERED: POTASSIUM PHOS,M-BASIC-D-BASIC 10 MMOL in DEXT 5% WATER 246.6667 ML IV SCH (09:00)
[2019-07-28 09:30] LABS: BASOPHILS % 0.6 % (0.0-2.0); EOSINOPHILS % 3.4 % (0.0-5.0); HEMATOCRIT. 36.4 % (42.0-52.0); HEMOGLOBIN. 12.2 g/dL (14.0-18.0); LYMPHOCYTES % 15.8 % (20.0-50.0); MEAN CORPUSCULAR HEMOGLOBIN 27.4 pg (28.0-32.0); MEAN PLATELET VOLUME 8.4 fl (7.4-10.4); MONOCYTES % 11.5 % (2.0-8.0); NEUTROPHILS % 68.7 % (40.0-76.0); PLATELET 268 x1000/uL (130-400); RED BLOOD CELL COUNT 4.44 mill/uL (4.7-6.1); RED CELL DISTRIBUTION WIDTH 14.8 % (11.6-14.6)
[2019-07-28] MEDS ORDERED: POTASSIUM CHLORIDE INJ 40 MEQ in DEXT 5% WATER 250 ML IV SCH (13:00)
[2019-07-28] MEDS: DEXT 5%/0.45% NACL 1000ML 1,000 ML IV SCH (13:17)
[2019-07-28] MEDS: AZTREONAM 1 G in DEXTROSE 5% WATER 50 ML IV SCH ×2 (14:25→21:16)
[2019-07-28] MEDS: CLINDAMYCIN 600MG PREMIX 50 ML IV SCH ×2 (14:38→21:15)
[2019-07-28] MEDS: PHENYTOIN 100 MG/4 ML UDC NG SCH (21:15)
[2019-07-28] MEDS: VALPROATE SODIUM 1,000 MG in SODIUM CHLORIDE 0.9% 100 ML IV SCH (22:52)
[2019-07-29] VITALS (59 sets, daily range): BP systolic 107–144; BP diastolic 57–83
[2019-07-29] MEDS: DEXT 5%/0.45% NACL 1000ML 1,000 ML IV SCH ×2 (01:35→15:50)
[2019-07-29] MEDS: MIDAZOLAM HCL 100 MG in DEXT 5% WATER 80 ML IV PRN ×2 (04:16→11:18)
[2019-07-29] MEDS: ACETAMINOPHEN 325MG TABLET PO PRN ×2 (04:29→19:51)
[2019-07-29] MEDS: LORAZEPAM 2MG/ML CPJ IV PRN ×2 (04:29→09:44)
[2019-07-29] MEDS: AZTREONAM 1 G in DEXTROSE 5% WATER 50 ML IV SCH ×3 (05:47→21:37)
[2019-07-29] MEDS: CLINDAMYCIN 600MG PREMIX 50 ML IV SCH ×3 (05:47→21:37)
[2019-07-29 06:02] LABS: CHLORIDE 103 mEq/L (98-107)
[2019-07-29 06:08] LABS: PHOSPHORUS 2.5 mg/dL (2.5-4.9)
[2019-07-29 06:12] LABS: INR 1.1; PARTIAL THROMBOPLASTIN TIME 24.9 sec (23.4-31.0); PROTHROMBIN TIME 12.3 sec (9.6-11.0)
[2019-07-29 08:50] LABS: BG BASE EXCESS 2.4 mmol/L (-2.0-2.0); BG CARBOXYHEMOGLOBIN 0.3 % (0.5-1.5); BG DEOXYHEMOGLOBIN 4.5 % (0.0-5.0); BG FRACTION INSPIRED OXYGEN 60; BG HCO3 ACT 25.9 mmol/L (22.0-26.0); BG METHEMOGLOBIN 0.2 % (0.0-1.5); BG OXYGEN SATURATION 95.5 % (92.0-98.5); BG PCO2 36.4 mmHg (35.0-45.0); BG PO2 71.3 mmHg (75.0-100.0); BG SAMPLE SITE RIGHT RADIAL; BG TIDAL VOLUME(mL) 550 mL; BG TOTAL HEMOGLOBIN 12.2 g/dL (12.0-18.0); BG VENT MODE VENT - A/C; BG VENT RATE 16 set
[2019-07-29] MEDS: PANTOPRAZOLE SODIUM 40 MG/VIAL IV SCH (09:42)
[2019-07-29] MEDS: CLONAZEPAM 0.5MG TABLET PO SCH ×2 (09:43→18:53)
[2019-07-29] MEDS: DOCUSATE SODIUM SUGAR FREE 100MG/10ML UDC NG SCH (09:43)
[2019-07-29] MEDS: PHENYTOIN 100 MG/4 ML UDC NG SCH ×2 (09:43→18:53)
[2019-07-29] MEDS: LEVETIRACETAM 1,500 MG in SODIUM CHLORIDE 0.9% 100 ML IV SCH ×2 (09:44→20:39)
[2019-07-29] MEDS: VALPROATE SODIUM 1,000 MG in SODIUM CHLORIDE 0.9% 100 ML IV SCH ×2 (09:44→20:39)
[2019-07-29] MEDS: FENTANYL CITRATE/PF 1,000 MCG in SODIUM CHLORIDE 0.9% 80 ML IV PRN ×2 (09:48→19:29)
[2019-07-30] VITALS (66 sets, daily range): BP systolic 99–145; BP diastolic 58–102
[2019-07-30] MEDS: ACETAMINOPHEN 325MG TABLET PO PRN ×4 (00:22→23:59)
[2019-07-30] MEDS: MIDAZOLAM HCL 100 MG in DEXT 5% WATER 80 ML IV PRN ×4 (01:02→23:24)
[2019-07-30] MEDS: FENTANYL CITRATE/PF 1,000 MCG in SODIUM CHLORIDE 0.9% 80 ML IV PRN ×2 (04:52→15:41)
[2019-07-30 05:44] LABS: BASOPHILS % 0.8 % (0.0-2.0); EOSINOPHILS % 2.6 % (0.0-5.0); HEMATOCRIT. 34.3 % (42.0-52.0); HEMOGLOBIN. 11.8 g/dL (14.0-18.0); LYMPHOCYTES % 17.9 % (20.0-50.0); MEAN CORPUSCULAR HEMOGLOBIN 28.3 pg (28.0-32.0); MEAN CORPUSCULAR VOLUME 82.4 fL (80.0-94.0); MEAN PLATELET VOLUME 9.1 fl (7.4-10.4); MONOCYTES % 12.3 % (2.0-8.0); NEUTROPHILS % 66.4 % (40.0-76.0); PLATELET 334 x1000/uL (130-400); RED BLOOD CELL COUNT 4.16 mill/uL (4.7-6.1); RED CELL DISTRIBUTION WIDTH 15.2 % (11.6-14.6)
[2019-07-30] MEDS: AZTREONAM 1 G in DEXTROSE 5% WATER 50 ML IV SCH ×3 (06:47→21:25)
[2019-07-30] MEDS: CLINDAMYCIN 600MG PREMIX 50 ML IV SCH ×3 (06:55→21:25)
[2019-07-30] MEDS: LORAZEPAM 2MG/ML CPJ IV PRN ×3 (06:56→19:37)
[2019-07-30] MEDS: PANTOPRAZOLE SODIUM 40 MG/VIAL IV SCH (08:54)
[2019-07-30] MEDS: DOCUSATE SODIUM SUGAR FREE 100MG/10ML UDC NG SCH (08:54)
[2019-07-30] MEDS: PHENYTOIN 100 MG/4 ML UDC NG SCH ×2 (08:54→17:30)
[2019-07-30] MEDS: LEVETIRACETAM 1,500 MG in SODIUM CHLORIDE 0.9% 100 ML IV SCH ×2 (08:55→20:54)
[2019-07-30] MEDS: DEXT 5%/0.45% NACL 1000ML 1,000 ML IV SCH ×2 (08:59→17:31)
[2019-07-30 09:10] LABS: BG BASE EXCESS 0.3 mmol/L (-2.0-2.0); BG CARBOXYHEMOGLOBIN 0.2 % (0.5-1.5); BG DEOXYHEMOGLOBIN 4.7 % (0.0-5.0); BG FRACTION INSPIRED OXYGEN 60; BG HCO3 ACT 23.3 mmol/L (22.0-26.0); BG METHEMOGLOBIN 0.2 % (0.0-1.5); BG OXYGEN SATURATION 95.3 % (92.0-98.5); BG OXYHEMOGLOBIN 94.9 % (94.0-97.0); BG PCO2 32.6 mmHg (35.0-45.0); BG PH 7.472 (7.350-7.450); BG PO2 70.3 mmHg (75.0-100.0); BG SAMPLE SITE RIGHT RADIAL; BG TIDAL VOLUME(mL) 550 mL; BG TOTAL HEMOGLOBIN 12.2 g/dL (12.0-18.0); BG VENT MODE VENT - A/C; BG VENT RATE 16 set
[2019-07-30 09:48] LABS: CHLORIDE 103 mEq/L (98-107)
[2019-07-30] MEDS: VALPROATE SODIUM 1,000 MG in SODIUM CHLORIDE 0.9% 100 ML IV SCH ×2 (12:46→23:19)
[2019-07-31] VITALS (92 sets, daily range): BP systolic 82–249; BP diastolic 30–189
[2019-07-31] MEDS: FENTANYL CITRATE/PF 1,000 MCG in SODIUM CHLORIDE 0.9% 80 ML IV PRN ×3 (01:48→23:40)
[2019-07-31] MEDS: DEXT 5%/0.45% NACL 1000ML 1,000 ML IV SCH (02:11)
[2019-07-31] MEDS: LORAZEPAM 2MG/ML CPJ IV PRN ×2 (03:55→09:08)
[2019-07-31 05:38] LABS: BASOPHILS % 0.6 % (0.0-2.0); EOSINOPHILS % 2.7 % (0.0-5.0); HEMATOCRIT. 35.2 % (42.0-52.0); HEMOGLOBIN. 11.7 g/dL (14.0-18.0); LYMPHOCYTES % 18.3 % (20.0-50.0); MEAN CORPUSCULAR HEMOGLOBIN 27.6 pg (28.0-32.0); MEAN PLATELET VOLUME 8.5 fl (7.4-10.4); MONOCYTES % 12.5 % (2.0-8.0); NEUTROPHILS % 65.9 % (40.0-76.0); PLATELET 336 x1000/uL (130-400); RED BLOOD CELL COUNT 4.24 mill/uL (4.7-6.1)
[2019-07-31] MEDS: CLINDAMYCIN 600MG PREMIX 50 ML IV SCH ×3 (05:40→21:53)
[2019-07-31] MEDS: AZTREONAM 1 G in DEXTROSE 5% WATER 50 ML IV SCH ×3 (05:40→21:53)
[2019-07-31 05:45] LABS: CHLORIDE 101 mEq/L (98-107)
[2019-07-31 06:12] LABS: CREATINE KINASE 3175 IU/L (39-308)
[2019-07-31] MEDS: MIDAZOLAM HCL 100 MG in DEXT 5% WATER 80 ML IV PRN ×2 (07:09→21:19)
[2019-07-31] MEDS: PANTOPRAZOLE SODIUM 40 MG/VIAL IV SCH (09:08)
[2019-07-31] MEDS: PHENYTOIN 100 MG/4 ML UDC NG SCH ×2 (09:08→17:25)
[2019-07-31] MEDS: DOCUSATE SODIUM SUGAR FREE 100MG/10ML UDC NG SCH (09:08)
[2019-07-31] MEDS: ACETAMINOPHEN 325MG TABLET PO PRN ×2 (09:11→23:41)
[2019-07-31 09:44] LABS: BG BASE EXCESS 0.8 mmol/L (-2.0-2.0); BG CARBOXYHEMOGLOBIN 0.1 % (0.5-1.5); BG FRACTION INSPIRED OXYGEN 60; BG HCO3 ACT 24.7 mmol/L (22.0-26.0); BG METHEMOGLOBIN 0.2 % (0.0-1.5); BG OXYHEMOGLOBIN 96.7 % (94.0-97.0); BG PCO2 36.9 mmHg (35.0-45.0); BG PH 7.444 (7.350-7.450); BG PO2 85.5 mmHg (75.0-100.0); BG SAMPLE SITE RIGHT BRACHIAL; BG TIDAL VOLUME(mL) 550 mL; BG TOTAL HEMOGLOBIN 11.8 g/dL (12.0-18.0); BG VENT MODE VENT - A/C; BG VENT RATE 14 set
[2019-07-31] MEDS: LEVETIRACETAM 1,500 MG in SODIUM CHLORIDE 0.9% 100 ML IV SCH ×2 (12:44→21:53)
[2019-07-31] MEDS: VALPROATE SODIUM 250MG/5ML UDC NG SCH ×2 (17:25→20:37)
[2019-07-31] MEDS: PROPOFOL 10MG/ML 100ML 100 ML IV PRN (20:40)
[2019-08-01] VITALS (94 sets, daily range): BP systolic 97–156; BP diastolic 31–84
[2019-08-01] MEDS: DEXT 5%/0.45% NACL 1000ML 1,000 ML IV SCH ×2 (03:51→16:34)
[2019-08-01] MEDS: MIDAZOLAM HCL 100 MG in DEXT 5% WATER 80 ML IV PRN ×3 (05:23→18:52)
[2019-08-01] MEDS: AZTREONAM 1 G in DEXTROSE 5% WATER 50 ML IV SCH ×3 (05:26→21:32)
[2019-08-01] MEDS: CLINDAMYCIN 600MG PREMIX 50 ML IV SCH ×3 (05:27→21:32)
[2019-08-01 05:40] LABS: BASOPHILS % 0.6 % (0.0-2.0); EOSINOPHILS % 3.8 % (0.0-5.0); HEMATOCRIT. 30.9 % (42.0-52.0); HEMOGLOBIN. 10.4 g/dL (14.0-18.0); LYMPHOCYTES % 13.7 % (20.0-50.0); MEAN CORPUSCULAR HEMOGLOBIN 27.6 pg (28.0-32.0); MEAN CORPUSCULAR VOLUME 81.8 fL (80.0-94.0); MEAN PLATELET VOLUME 8.8 fl (7.4-10.4); MONOCYTES % 10.3 % (2.0-8.0); NEUTROPHILS % 71.6 % (40.0-76.0); PLATELET 308 x1000/uL (130-400); RED BLOOD CELL COUNT 3.78 mill/uL (4.7-6.1); RED CELL DISTRIBUTION WIDTH 15.1 % (11.6-14.6)
[2019-08-01 05:47] LABS: CHLORIDE 103 mEq/L (98-107)
[2019-08-01] MEDS: PROPOFOL 10MG/ML 100ML 100 ML IV PRN ×5 (07:45→23:05)
[2019-08-01] MEDS: LORAZEPAM 2MG/ML CPJ IV PRN ×2 (09:07→19:50)
[2019-08-01] MEDS: PANTOPRAZOLE SODIUM 40 MG/VIAL IV SCH (09:07)
[2019-08-01] MEDS: PHENYTOIN 100 MG/4 ML UDC NG SCH ×3 (09:08→16:33)
[2019-08-01] MEDS: DOCUSATE SODIUM SUGAR FREE 100MG/10ML UDC NG SCH (09:08)
[2019-08-01] MEDS: VALPROATE SODIUM 250MG/5ML UDC NG SCH ×2 (09:08→20:28)
[2019-08-01] MEDS: LEVETIRACETAM 1,500 MG in SODIUM CHLORIDE 0.9% 100 ML IV SCH ×2 (09:09→21:32)
[2019-08-01 09:14] LABS: BG BASE EXCESS 2.3 mmol/L (-2.0-2.0); BG FRACTION INSPIRED OXYGEN 50; BG HCO3 ACT 25.5 mmol/L (22.0-26.0); BG PCO2 35.3 mmHg (35.0-45.0); BG PH 7.477 (7.350-7.450); BG PO2 83.6 mmHg (75.0-100.0); BG SAMPLE SITE RIGHT RADIAL; BG TIDAL VOLUME(mL) 550 mL; BG VENT MODE VENT - CPAP; BG VENT RATE 14 set
[2019-08-01] MEDS: FENTANYL CITRATE/PF 1,000 MCG in SODIUM CHLORIDE 0.9% 80 ML IV PRN ×2 (09:53→19:33)
[2019-08-01] MEDS ORDERED: PHENYTOIN 100 MG/4 ML UDC NG NR (18:15)
[2019-08-02] VITALS (95 sets, daily range): BP systolic 98–146; BP diastolic 55–132
[2019-08-02] MEDS: PROPOFOL 10MG/ML 100ML 100 ML IV PRN ×6 (01:31→20:17)
[2019-08-02] MEDS: MIDAZOLAM HCL 100 MG in DEXT 5% WATER 80 ML IV PRN ×3 (03:02→21:00)
[2019-08-02] MEDS: AZTREONAM 1 G in DEXTROSE 5% WATER 50 ML IV SCH ×3 (06:08→22:10)
[2019-08-02] MEDS: CLINDAMYCIN 600MG PREMIX 50 ML IV SCH ×3 (06:08→21:53)
[2019-08-02] MEDS: FENTANYL CITRATE/PF 1,000 MCG in SODIUM CHLORIDE 0.9% 80 ML IV PRN ×2 (06:09→16:37)
[2019-08-02] MEDS: DEXT 5%/0.45% NACL 1000ML 1,000 ML IV SCH (06:57)
[2019-08-02] MEDS: PHENYTOIN 100 MG/4 ML UDC NG SCH ×3 (08:01→16:43)
[2019-08-02] MEDS: LORAZEPAM 2MG/ML CPJ IV PRN ×2 (08:01→17:40)
[2019-08-02] MEDS: PANTOPRAZOLE SODIUM 40 MG/VIAL IV SCH (08:01)
[2019-08-02] MEDS: VALPROATE SODIUM 250MG/5ML UDC NG SCH ×2 (08:01→20:51)
[2019-08-02] MEDS: LEVETIRACETAM 1,500 MG in SODIUM CHLORIDE 0.9% 100 ML IV SCH ×2 (08:01→20:55)
[2019-08-02] MEDS: DOCUSATE SODIUM SUGAR FREE 100MG/10ML UDC NG SCH (08:02)
[2019-08-02 13:11] LABS: BG BASE EXCESS 3.5 mmol/L (-2.0-2.0); BG CARBOXYHEMOGLOBIN 0.3 % (0.5-1.5); BG DEOXYHEMOGLOBIN 5.3 % (0.0-5.0); BG FRACTION INSPIRED OXYGEN 50; BG HCO3 ACT 27.4 mmol/L (22.0-26.0); BG METHEMOGLOBIN 0.1 % (0.0-1.5); BG OXYGEN SATURATION 94.7 % (92.0-98.5); BG OXYHEMOGLOBIN 94.3 % (94.0-97.0); BG PH 7.464 (7.350-7.450); BG PO2 70.6 mmHg (75.0-100.0); BG SAMPLE SITE RIGHT RADIAL; BG TIDAL VOLUME(mL) 550 mL; BG TOTAL HEMOGLOBIN 11.7 g/dL (12.0-18.0); BG VENT MODE VENT - A/C; BG VENT RATE 14 set
[2019-08-02] MEDS ORDERED: PHENYTOIN 100 MG/4 ML UDC NG NR (18:20)
[2019-08-02] MEDS: ACETAMINOPHEN 325MG TABLET PO PRN (22:00)
[2019-08-03] VITALS (90 sets, daily range): BP systolic 89–139; BP diastolic 48–82
[2019-08-03] MEDS: DEXT 5%/0.45% NACL 1000ML 1,000 ML IV SCH ×2 (00:05→15:13)
[2019-08-03] MEDS: PROPOFOL 10MG/ML 100ML 100 ML IV PRN ×8 (00:38→23:40)
[2019-08-03] MEDS: FENTANYL CITRATE/PF 1,000 MCG in SODIUM CHLORIDE 0.9% 80 ML IV PRN ×2 (04:34→14:49)
[2019-08-03] MEDS: LORAZEPAM 2MG/ML CPJ IV PRN ×2 (05:04→09:06)
[2019-08-03 05:53] LABS: CHLORIDE 105 mEq/L (98-107)
[2019-08-03 06:34] LABS: CREATINE KINASE 10826 IU/L (39-308)
[2019-08-03] MEDS: MIDAZOLAM HCL 100 MG in DEXT 5% WATER 80 ML IV PRN ×2 (08:30→18:24)
[2019-08-03] MEDS: LEVETIRACETAM 1,500 MG in SODIUM CHLORIDE 0.9% 100 ML IV SCH ×2 (09:05→20:57)
[2019-08-03] MEDS: PANTOPRAZOLE SODIUM 40 MG/VIAL IV SCH (09:05)
[2019-08-03] MEDS: DOCUSATE SODIUM SUGAR FREE 100MG/10ML UDC NG SCH (09:06)
[2019-08-03] MEDS: PHENYTOIN 100 MG/4 ML UDC NG SCH ×3 (09:06→16:55)
[2019-08-03] MEDS: VALPROATE SODIUM 250MG/5ML UDC NG SCH ×2 (11:19→21:01)
[2019-08-03] MEDS ORDERED: PROPOFOL 10MG/ML 100ML 100 ML IV PRN (12:30)
[2019-08-04] VITALS (89 sets, daily range): BP systolic 87–153; BP diastolic 47–82
[2019-08-04] MEDS: PROPOFOL 10MG/ML 100ML 100 ML IV PRN ×7 (01:51→18:16)
[2019-08-04] MEDS: FENTANYL CITRATE/PF 1,000 MCG in SODIUM CHLORIDE 0.9% 80 ML IV PRN ×2 (03:52→15:29)
[2019-08-04] MEDS: DEXT 5%/0.45% NACL 1000ML 1,000 ML IV SCH ×2 (06:06→18:16)
[2019-08-04] MEDS: ACETAMINOPHEN 325MG TABLET PO PRN (06:07)
[2019-08-04] MEDS: MIDAZOLAM HCL 100 MG in DEXT 5% WATER 80 ML IV PRN ×2 (07:40→15:30)
[2019-08-04 08:15] LABS: BG BASE EXCESS 1.2 mmol/L (-2.0-2.0); BG CARBOXYHEMOGLOBIN 0.2 % (0.5-1.5); BG DEOXYHEMOGLOBIN 4.8 % (0.0-5.0); BG FRACTION INSPIRED OXYGEN 50; BG HCO3 ACT 25.2 mmol/L (22.0-26.0); BG METHEMOGLOBIN 0.7 % (0.0-1.5); BG OXYGEN SATURATION 95.2 % (92.0-98.5); BG OXYHEMOGLOBIN 94.3 % (94.0-97.0); BG PCO2 37.3 mmHg (35.0-45.0); BG PH 7.447 (7.350-7.450); BG PO2 76.4 mmHg (75.0-100.0); BG SAMPLE SITE RIGHT RADIAL; BG TIDAL VOLUME(mL) 550 mL; BG TOTAL HEMOGLOBIN 10.7 g/dL (12.0-18.0); BG VENT MODE VENT - A/C; BG VENT RATE 12 set
[2019-08-04] MEDS: PHENYTOIN 100 MG/4 ML UDC NG SCH ×3 (09:14→18:13)
[2019-08-04] MEDS: DOCUSATE SODIUM SUGAR FREE 100MG/10ML UDC NG SCH (09:14)
[2019-08-04] MEDS: VALPROATE SODIUM 250MG/5ML UDC NG SCH ×2 (09:14→20:45)
[2019-08-04] MEDS: LEVETIRACETAM 1,500 MG in SODIUM CHLORIDE 0.9% 100 ML IV SCH ×2 (09:15→20:45)
[2019-08-04] MEDS: PANTOPRAZOLE SODIUM 40 MG/VIAL IV SCH (09:15)
[2019-08-04] MEDS: LORAZEPAM 2MG/ML CPJ IV PRN ×3 (09:17→18:14)
[2019-08-04] MEDS ORDERED: LIDOCAINE HCL/EPINEPHRINE 1%-EPI 1:100,000 20 ML VIAL INFIL ONE ×2 (14:45→16:00)
[2019-08-05] VITALS (86 sets, daily range): BP systolic 100–139; BP diastolic 52–78
[2019-08-05] MEDS: ACETAMINOPHEN 325MG TABLET PO PRN (03:42)
[2019-08-05] MEDS: PROPOFOL 10MG/ML 100ML 100 ML IV PRN ×3 (05:23→16:48)
[2019-08-05] MEDS: FENTANYL CITRATE/PF 1,000 MCG in SODIUM CHLORIDE 0.9% 80 ML IV PRN (05:46)
[2019-08-05 05:52] LABS: BASOPHILS % 0.6 % (0.0-2.0); EOSINOPHILS % 2.8 % (0.0-5.0); HEMOGLOBIN. 10.6 g/dL (14.0-18.0); LYMPHOCYTES % 13.4 % (20.0-50.0); MEAN CORPUSCULAR HEMOGLOBIN 27.3 pg (28.0-32.0); MEAN CORPUSCULAR VOLUME 82.3 fL (80.0-94.0); MONOCYTES % 8.5 % (2.0-8.0); NEUTROPHILS % 74.7 % (40.0-76.0); RED BLOOD CELL COUNT 3.88 mill/uL (4.7-6.1); RED CELL DISTRIBUTION WIDTH 15.3 % (11.6-14.6)
[2019-08-05 06:01] LABS: CHLORIDE 106 mEq/L (98-107)
[2019-08-05] MEDS: MIDAZOLAM HCL 100 MG in DEXT 5% WATER 80 ML IV PRN ×2 (07:21→16:46)
[2019-08-05 08:05] LABS: PLATELET 362 x1000/uL (130-400)
[2019-08-05 08:56] LABS: BG BASE EXCESS 1.5 mmol/L (-2.0-2.0); BG CARBOXYHEMOGLOBIN 0.3 % (0.5-1.5); BG DEOXYHEMOGLOBIN 7.4 % (0.0-5.0); BG FRACTION INSPIRED OXYGEN 50; BG HCO3 ACT 24.8 mmol/L (22.0-26.0); BG METHEMOGLOBIN 0.3 % (0.0-1.5); BG OXYGEN SATURATION 92.6 % (92.0-98.5); BG PCO2 34.1 mmHg (35.0-45.0); BG PO2 60.5 mmHg (75.0-100.0); BG SAMPLE SITE RIGHT RADIAL; BG TIDAL VOLUME(mL) 550 mL; BG VENT MODE VENT - A/C; BG VENT RATE 12 set
[2019-08-05] MEDS: DOCUSATE SODIUM SUGAR FREE 100MG/10ML UDC NG SCH (09:15)
[2019-08-05] MEDS: DEXT 5%/0.45% NACL 1000ML 1,000 ML IV SCH ×2 (09:15→20:48)
[2019-08-05] MEDS: LEVETIRACETAM 1,500 MG in SODIUM CHLORIDE 0.9% 100 ML IV SCH ×2 (09:15→20:54)
[2019-08-05] MEDS: PANTOPRAZOLE SODIUM 40 MG/VIAL IV SCH (09:16)
[2019-08-05] MEDS: LORAZEPAM 2MG/ML CPJ IV PRN ×3 (09:16→16:45)
[2019-08-05] MEDS: PHENYTOIN 100 MG/4 ML UDC NG SCH ×3 (09:16→16:45)
[2019-08-05] MEDS: VALPROATE SODIUM 250MG/5ML UDC NG SCH ×2 (11:37→20:54)
[2019-08-05] MEDS ORDERED: MORPHINE SULFATE 2 MG/ML CPJ (NOT FOR IM USE) IV PRN (13:45)
[2019-08-06] VITALS (82 sets, daily range): BP systolic 104–182; BP diastolic 57–96
[2019-08-06] MEDS: PROPOFOL 10MG/ML 100ML 100 ML IV PRN ×3 (00:25→13:15)
[2019-08-06] MEDS: ACETAMINOPHEN 325MG TABLET PO PRN (00:38)
[2019-08-06 05:11] LABS: CHLORIDE 104 mEq/L (98-107)
[2019-08-06] MEDS: MIDAZOLAM HCL 100 MG in DEXT 5% WATER 80 ML IV PRN ×3 (06:12→23:33)
[2019-08-06] MEDS: LORAZEPAM 2MG/ML CPJ IV PRN ×4 (07:49→21:46)
[2019-08-06] MEDS: PHENYTOIN 100 MG/4 ML UDC NG SCH ×3 (08:04→16:24)
[2019-08-06] MEDS: VALPROATE SODIUM 250MG/5ML UDC NG SCH ×2 (08:04→21:10)
[2019-08-06] MEDS: PANTOPRAZOLE SODIUM 40 MG/VIAL IV SCH (08:04)
[2019-08-06] MEDS: DOCUSATE SODIUM SUGAR FREE 100MG/10ML UDC NG SCH (08:05)
[2019-08-06 08:10] LABS: BG BASE EXCESS 0.8 mmol/L (-2.0-2.0); BG CARBOXYHEMOGLOBIN 0.3 % (0.5-1.5); BG DEOXYHEMOGLOBIN 3.6 % (0.0-5.0); BG FRACTION INSPIRED OXYGEN 50; BG HCO3 ACT 24.1 mmol/L (22.0-26.0); BG METHEMOGLOBIN 0.3 % (0.0-1.5); BG OXYGEN SATURATION 96.4 % (92.0-98.5); BG OXYHEMOGLOBIN 95.8 % (94.0-97.0); BG PCO2 33.7 mmHg (35.0-45.0); BG PH 7.473 (7.350-7.450); BG PO2 83.6 mmHg (75.0-100.0); BG SAMPLE SITE RIGHT RADIAL; BG TIDAL VOLUME(mL) 550 mL; BG TOTAL HEMOGLOBIN 9.8 g/dL (12.0-18.0); BG VENT MODE VENT - A/C; BG VENT RATE 12 set
[2019-08-06] MEDS: LEVETIRACETAM 1,500 MG in SODIUM CHLORIDE 0.9% 100 ML IV SCH ×2 (09:01→21:09)
[2019-08-06] MEDS: DEXT 5%/0.45% NACL 1000ML 1,000 ML IV SCH (09:01)
[2019-08-06 10:28] LABS: HEMATOCRIT 28.9 % (42.0-52.0); HEMOGLOBIN 9.7 g/dL (14.0-18.0)
[2019-08-06] MEDS: CLONIDINE 0.1MG TABLET PO PRN (21:50)
[2019-08-07] VITALS (76 sets, daily range): BP systolic 93–179; BP diastolic 57–102
[2019-08-07] MEDS: DEXT 5%/0.45% NACL 1000ML 1,000 ML IV SCH ×2 (01:26→20:28)
[2019-08-07] MEDS: LORAZEPAM 2MG/ML CPJ IV PRN ×2 (03:22→06:39)
[2019-08-07 05:36] LABS: CHLORIDE 106 mEq/L (98-107)
[2019-08-07 05:40] LABS: HEMATOCRIT. 33.4 % (42.0-52.0); HEMOGLOBIN. 11.2 g/dL (14.0-18.0); MEAN CORPUSCULAR HEMOGLOBIN 27.6 pg (28.0-32.0); MEAN CORPUSCULAR VOLUME 82.2 fL (80.0-94.0); MEAN PLATELET VOLUME 8.9 fl (7.4-10.4); PLATELET 394 x1000/uL (130-400); RED BLOOD CELL COUNT 4.07 mill/uL (4.7-6.1)
[2019-08-07 06:08] LABS: CREATINE KINASE 3603 IU/L (39-308)
[2019-08-07] MEDS: CLONIDINE 0.1MG TABLET PO PRN (07:35)
[2019-08-07] MEDS: LEVETIRACETAM 1,500 MG in SODIUM CHLORIDE 0.9% 100 ML IV SCH ×2 (09:38→21:23)
[2019-08-07] MEDS: PHENYTOIN 100 MG/4 ML UDC NG SCH ×3 (10:03→17:00)
[2019-08-07] MEDS: PANTOPRAZOLE SODIUM 40 MG/VIAL IV SCH (10:03)
[2019-08-07] MEDS: VALPROATE SODIUM 250MG/5ML UDC NG SCH ×2 (10:04→20:27)
[2019-08-07] MEDS: DOCUSATE SODIUM SUGAR FREE 100MG/10ML UDC NG SCH (10:04)
[2019-08-07] MEDS: MIDAZOLAM HCL 100 MG in DEXT 5% WATER 80 ML IV PRN ×2 (10:07→20:27)
[2019-08-07 13:36] LABS: PLATELET ESTIMATE NORMAL
[2019-08-08] VITALS (87 sets, daily range): BP systolic 102–150; BP diastolic 36–96
[2019-08-08] MEDS: ACETAMINOPHEN 325MG TABLET PO PRN ×2 (02:28→20:16)
[2019-08-08] MEDS: MIDAZOLAM HCL 100 MG in DEXT 5% WATER 80 ML IV PRN ×3 (06:21→22:14)
[2019-08-08 08:24] LABS: BG BASE EXCESS 2.9 mmol/L (-2.0-2.0); BG CARBOXYHEMOGLOBIN 0.2 % (0.5-1.5); BG DEOXYHEMOGLOBIN 4.9 % (0.0-5.0); BG HCO3 ACT 26.3 mmol/L (22.0-26.0); BG METHEMOGLOBIN 0.4 % (0.0-1.5); BG OXYGEN SATURATION 95.1 % (92.0-98.5); BG OXYHEMOGLOBIN 94.5 % (94.0-97.0); BG PCO2 35.8 mmHg (35.0-45.0); BG PH 7.484 (7.350-7.450); BG PO2 69.1 mmHg (75.0-100.0); BG SAMPLE SITE RIGHT RADIAL; BG TIDAL VOLUME(mL) 550 mL; BG TOTAL HEMOGLOBIN 10.8 g/dL (12.0-18.0); BG VENT MODE VENT - A/C; BG VENT RATE 12 set
[2019-08-08] MEDS: VALPROATE SODIUM 250MG/5ML UDC NG SCH ×2 (09:21→20:16)
[2019-08-08] MEDS: DOCUSATE SODIUM SUGAR FREE 100MG/10ML UDC NG SCH (09:21)
[2019-08-08] MEDS: LORAZEPAM 2MG/ML CPJ IV PRN ×3 (09:21→16:25)
[2019-08-08] MEDS: LEVETIRACETAM 1,500 MG in SODIUM CHLORIDE 0.9% 100 ML IV SCH ×2 (09:21→21:00)
[2019-08-08] MEDS: PANTOPRAZOLE SODIUM 40 MG/VIAL IV SCH (09:22)
[2019-08-08] MEDS: DEXT 5%/0.45% NACL 1000ML 1,000 ML IV SCH ×2 (09:22→16:26)
[2019-08-08] MEDS: PHENYTOIN 100 MG/4 ML UDC NG SCH ×3 (09:26→16:25)
[2019-08-09] VITALS (91 sets, daily range): BP systolic 107–156; BP diastolic 37–89
[2019-08-09] MEDS: MIDAZOLAM HCL 100 MG in DEXT 5% WATER 80 ML IV PRN ×3 (03:05→20:16)
[2019-08-09] MEDS: DEXT 5%/0.45% NACL 1000ML 1,000 ML IV SCH ×2 (06:42→17:44)
[2019-08-09] MEDS: LEVETIRACETAM 1,500 MG in SODIUM CHLORIDE 0.9% 100 ML IV SCH ×2 (09:23→21:46)
[2019-08-09] MEDS: LORAZEPAM 2MG/ML CPJ IV PRN ×3 (09:24→17:44)
[2019-08-09] MEDS: PHENYTOIN 100 MG/4 ML UDC NG SCH ×3 (09:24→17:44)
[2019-08-09] MEDS: VALPROATE SODIUM 250MG/5ML UDC NG SCH ×2 (09:24→20:15)
[2019-08-09] MEDS: PANTOPRAZOLE SODIUM 40 MG/VIAL IV SCH (09:24)
[2019-08-09] MEDS: DOCUSATE SODIUM SUGAR FREE 100MG/10ML UDC NG SCH (09:24)
[2019-08-09] MEDS: ACETAMINOPHEN 325MG TABLET PO PRN (21:07)
[2019-08-10] VITALS (98 sets, daily range): BP systolic 64–163; BP diastolic 22–101
[2019-08-10] MEDS: ACETAMINOPHEN 325MG TABLET PO PRN (05:12)
[2019-08-10 05:38] LABS: BASOPHILS % 0.7 % (0.0-2.0); EOSINOPHILS % 5.1 % (0.0-5.0); HEMOGLOBIN. 10.7 g/dL (14.0-18.0); LYMPHOCYTES % 17.4 % (20.0-50.0); MEAN CORPUSCULAR HEMOGLOBIN 27.5 pg (28.0-32.0); MEAN CORPUSCULAR VOLUME 82.4 fL (80.0-94.0); MEAN PLATELET VOLUME 8.4 fl (7.4-10.4); MONOCYTES % 10.7 % (2.0-8.0); NEUTROPHILS % 66.1 % (40.0-76.0); PLATELET 443 x1000/uL (130-400); RED BLOOD CELL COUNT 3.89 mill/uL (4.7-6.1); RED CELL DISTRIBUTION WIDTH 15.1 % (11.6-14.6)
[2019-08-10] MEDS: DEXT 5%/0.45% NACL 1000ML 1,000 ML IV SCH ×2 (05:39→20:48)
[2019-08-10 05:49] LABS: CHLORIDE 106 mEq/L (98-107)
[2019-08-10] MEDS: MIDAZOLAM HCL 100 MG in DEXT 5% WATER 80 ML IV PRN ×2 (05:50→17:59)
[2019-08-10] MEDS: VALPROATE SODIUM 250MG/5ML UDC NG SCH ×2 (08:40→20:47)
[2019-08-10] MEDS: LEVETIRACETAM 1,500 MG in SODIUM CHLORIDE 0.9% 100 ML IV SCH ×2 (08:40→21:37)
[2019-08-10] MEDS: PHENYTOIN 100 MG/4 ML UDC NG SCH ×3 (08:40→17:58)
[2019-08-10] MEDS: PANTOPRAZOLE SODIUM 40 MG/VIAL IV SCH (08:41)
[2019-08-10 09:08] LABS: BG BASE EXCESS 1.5 mmol/L (-2.0-2.0); BG CARBOXYHEMOGLOBIN 0.3 % (0.5-1.5); BG DEOXYHEMOGLOBIN 2.1 % (0.0-5.0); BG FRACTION INSPIRED OXYGEN 60; BG HCO3 ACT 25.6 mmol/L (22.0-26.0); BG METHEMOGLOBIN 0.3 % (0.0-1.5); BG OXYGEN SATURATION 97.9 % (92.0-98.5); BG OXYHEMOGLOBIN 97.3 % (94.0-97.0); BG PCO2 38.3 mmHg (35.0-45.0); BG PH 7.443 (7.350-7.450); BG PO2 106.6 mmHg (75.0-100.0); BG SAMPLE SITE RIGHT BRACHIAL; BG TIDAL VOLUME(mL) 550 mL; BG TOTAL HEMOGLOBIN 10.6 g/dL (12.0-18.0); BG VENT MODE VENT - A/C; BG VENT RATE 22 set
[2019-08-10] MEDS: LORAZEPAM 2MG/ML CPJ IV PRN ×3 (09:45→17:58)
[2019-08-10] MEDS: DOCUSATE SODIUM SUGAR FREE 100MG/10ML UDC NG SCH (13:40)
[2019-08-11] VITALS (94 sets, daily range): BP systolic 104–198; BP diastolic 25–111
[2019-08-11 05:46] LABS: BASOPHILS % 0.7 % (0.0-2.0); HEMATOCRIT. 31.9 % (42.0-52.0); HEMOGLOBIN. 10.7 g/dL (14.0-18.0); LYMPHOCYTES % 16.4 % (20.0-50.0); MEAN CORPUSCULAR HEMOGLOBIN 28.1 pg (28.0-32.0); MEAN CORPUSCULAR VOLUME 83.3 fL (80.0-94.0); MEAN PLATELET VOLUME 8.1 fl (7.4-10.4); MONOCYTES % 9.8 % (2.0-8.0); NEUTROPHILS % 68.1 % (40.0-76.0); PLATELET 408 x1000/uL (130-400); RED BLOOD CELL COUNT 3.82 mill/uL (4.7-6.1); RED CELL DISTRIBUTION WIDTH 15.3 % (11.6-14.6)
[2019-08-11 05:55] LABS: CHLORIDE 104 mEq/L (98-107)
[2019-08-11] MEDS: LORAZEPAM 2MG/ML CPJ IV PRN (08:17)
[2019-08-11] MEDS: LEVETIRACETAM 1,500 MG in SODIUM CHLORIDE 0.9% 100 ML IV SCH ×2 (08:17→20:15)
[2019-08-11] MEDS: PANTOPRAZOLE SODIUM 40 MG/VIAL IV SCH (08:28)
[2019-08-11] MEDS: VALPROATE SODIUM 250MG/5ML UDC NG SCH ×2 (08:28→20:15)
[2019-08-11] MEDS: DOCUSATE SODIUM SUGAR FREE 100MG/10ML UDC NG SCH (08:29)
[2019-08-11] MEDS: PHENYTOIN 100 MG/4 ML UDC NG SCH ×3 (08:29→17:00)
[2019-08-11] MEDS: DEXT 5%/0.45% NACL 1000ML 1,000 ML IV SCH ×2 (08:29→23:27)
[2019-08-11] MEDS: ACETAMINOPHEN 325MG TABLET PO PRN (09:04)
[2019-08-12] VITALS (86 sets, daily range): BP systolic 51–158; BP diastolic 34–93
[2019-08-12] MEDS: MIDAZOLAM HCL 100 MG in DEXT 5% WATER 80 ML IV PRN (04:04)
[2019-08-12 05:47] LABS: BASOPHILS % 0.5 % (0.0-2.0); EOSINOPHILS % 5.2 % (0.0-5.0); HEMOGLOBIN. 10.6 g/dL (14.0-18.0); LYMPHOCYTES % 14.4 % (20.0-50.0); MEAN CORPUSCULAR HEMOGLOBIN 27.3 pg (28.0-32.0); MEAN CORPUSCULAR VOLUME 82.1 fL (80.0-94.0); MEAN PLATELET VOLUME 8.4 fl (7.4-10.4); MONOCYTES % 7.8 % (2.0-8.0); NEUTROPHILS % 72.1 % (40.0-76.0); PLATELET 393 x1000/uL (130-400); RED CELL DISTRIBUTION WIDTH 15.3 % (11.6-14.6)
[2019-08-12 05:54] LABS: CHLORIDE 104 mEq/L (98-107)
[2019-08-12 06:04] LABS: CREATINE KINASE 822 IU/L (39-308)
[2019-08-12] MEDS: DOCUSATE SODIUM SUGAR FREE 100MG/10ML UDC NG SCH (08:31)
[2019-08-12] MEDS: LORAZEPAM 2MG/ML CPJ IV PRN ×4 (08:31→21:19)
[2019-08-12] MEDS: LEVETIRACETAM 1,500 MG in SODIUM CHLORIDE 0.9% 100 ML IV SCH ×2 (08:31→21:15)
[2019-08-12] MEDS: PHENYTOIN 100 MG/4 ML UDC NG SCH ×3 (08:31→17:20)
[2019-08-12] MEDS: PANTOPRAZOLE SODIUM 40 MG/VIAL IV SCH (08:31)
[2019-08-12] MEDS: VALPROATE SODIUM 250MG/5ML UDC NG SCH ×2 (08:32→21:18)
[2019-08-12] MEDS: GUAIFENESIN-DM 200MG-20MG/10ML UDC PO PRN (12:27)
[2019-08-12] MEDS: DEXT 5%/0.45% NACL 1000ML 1,000 ML IV SCH (12:27)
[2019-08-12] MEDS: CLONAZEPAM 0.5MG TABLET PO SCH (17:19)
[2019-08-13] VITALS (47 sets, daily range): BP systolic 108–149; BP diastolic 52–100
[2019-08-13] MEDS: DEXT 5%/0.45% NACL 1000ML 1,000 ML IV SCH ×2 (02:22→17:33)
[2019-08-13] MEDS: GUAIFENESIN-DM 200MG-20MG/10ML UDC PO PRN (08:48)
[2019-08-13] MEDS: VALPROATE SODIUM 250MG/5ML UDC NG SCH ×2 (08:48→21:16)
[2019-08-13] MEDS: DOCUSATE SODIUM SUGAR FREE 100MG/10ML UDC NG SCH (08:48)
[2019-08-13] MEDS: PHENYTOIN 100 MG/4 ML UDC NG SCH ×3 (08:48→17:33)
[2019-08-13] MEDS: LORAZEPAM 2MG/ML CPJ IV PRN ×3 (08:49→17:33)
[2019-08-13] MEDS: PANTOPRAZOLE SODIUM 40 MG/VIAL IV SCH (08:49)
[2019-08-13] MEDS: CLONAZEPAM 0.5MG TABLET PO SCH ×2 (08:50→17:33)
[2019-08-13] MEDS: LEVETIRACETAM 1,500 MG in SODIUM CHLORIDE 0.9% 100 ML IV SCH ×2 (08:50→21:16)
[2019-08-14] VITALS (48 sets, daily range): BP systolic 95–155; BP diastolic 50–113
[2019-08-14 05:07] LABS: BASOPHILS % 0.6 % (0.0-2.0); EOSINOPHILS % 5.3 % (0.0-5.0); HEMATOCRIT. 32.8 % (42.0-52.0); HEMOGLOBIN. 10.8 g/dL (14.0-18.0); LYMPHOCYTES % 18.6 % (20.0-50.0); MEAN CORPUSCULAR HEMOGLOBIN 27.7 pg (28.0-32.0); MEAN CORPUSCULAR VOLUME 83.6 fL (80.0-94.0); MEAN PLATELET VOLUME 8.5 fl (7.4-10.4); MONOCYTES % 7.1 % (2.0-8.0); NEUTROPHILS % 68.4 % (40.0-76.0); PLATELET 353 x1000/uL (130-400); RED BLOOD CELL COUNT 3.92 mill/uL (4.7-6.1); RED CELL DISTRIBUTION WIDTH 15.2 % (11.6-14.6)
[2019-08-14 05:12] LABS: CHLORIDE 106 mEq/L (98-107)
[2019-08-14 05:23] LABS: CREATINE KINASE 546 IU/L (39-308)
[2019-08-14] MEDS: DEXT 5%/0.45% NACL 1000ML 1,000 ML IV SCH ×2 (05:39→18:51)
[2019-08-14] MEDS: LEVETIRACETAM 1,500 MG in SODIUM CHLORIDE 0.9% 100 ML IV SCH ×2 (08:20→20:31)
[2019-08-14] MEDS: PHENYTOIN 100 MG/4 ML UDC NG SCH ×3 (08:20→16:46)
[2019-08-14] MEDS: PANTOPRAZOLE SODIUM 40 MG/VIAL IV SCH (08:21)
[2019-08-14] MEDS: DOCUSATE SODIUM SUGAR FREE 100MG/10ML UDC NG SCH (08:21)
[2019-08-14] MEDS: LORAZEPAM 2MG/ML CPJ IV PRN ×3 (08:21→16:46)
[2019-08-14] MEDS: VALPROATE SODIUM 250MG/5ML UDC NG SCH ×2 (08:21→20:32)
[2019-08-14] MEDS: CLONAZEPAM 0.5MG TABLET PO SCH ×2 (08:21→16:45)
[2019-08-14] MEDS: MORPHINE SULFATE 2 MG/ML CPJ (NOT FOR IM USE) IV PRN (20:35)
[2019-08-15] VITALS (49 sets, daily range): BP systolic 99–157; BP diastolic 37–98
[2019-08-15] MEDS: MORPHINE SULFATE 2 MG/ML CPJ (NOT FOR IM USE) IV PRN ×2 (04:22→21:09)
[2019-08-15] MEDS: LEVETIRACETAM 1,500 MG in SODIUM CHLORIDE 0.9% 100 ML IV SCH ×2 (09:39→21:07)
[2019-08-15] MEDS: PANTOPRAZOLE SODIUM 40 MG/VIAL IV SCH (09:39)
[2019-08-15] MEDS: VALPROATE SODIUM 250MG/5ML UDC NG SCH ×2 (09:40→22:23)
[2019-08-15] MEDS: LORAZEPAM 2MG/ML CPJ IV PRN ×3 (09:40→16:47)
[2019-08-15] MEDS: PHENYTOIN 100 MG/4 ML UDC NG SCH ×3 (09:40→16:47)
[2019-08-15] MEDS: GUAIFENESIN-DM 200MG-20MG/10ML UDC PO PRN (09:40)
[2019-08-15] MEDS: CLONAZEPAM 0.5MG TABLET PO SCH ×2 (09:40→16:47)
[2019-08-15] MEDS: DOCUSATE SODIUM SUGAR FREE 100MG/10ML UDC NG SCH (09:40)
[2019-08-15] MEDS: DEXT 5%/0.45% NACL 1000ML 1,000 ML IV SCH ×2 (09:49→21:10)
[2019-08-16] VITALS (35 sets, daily range): BP systolic 115–170; BP diastolic 63–104
[2019-08-16 05:27] LABS: BASOPHILS % 0.6 % (0.0-2.0); EOSINOPHILS % 4.7 % (0.0-5.0); HEMATOCRIT. 31.4 % (42.0-52.0); HEMOGLOBIN. 10.5 g/dL (14.0-18.0); MEAN CORPUSCULAR HEMOGLOBIN 28.1 pg (28.0-32.0); MEAN PLATELET VOLUME 8.6 fl (7.4-10.4); MONOCYTES % 10.5 % (2.0-8.0); NEUTROPHILS % 65.2 % (40.0-76.0); PLATELET 292 x1000/uL (130-400); RED BLOOD CELL COUNT 3.74 mill/uL (4.7-6.1); RED CELL DISTRIBUTION WIDTH 15.6 % (11.6-14.6)
[2019-08-16 05:31] LABS: CHLORIDE 103 mEq/L (98-107)
[2019-08-16] MEDS: LORAZEPAM 2MG/ML CPJ IV PRN ×3 (08:36→17:07)
[2019-08-16] MEDS: GUAIFENESIN-DM 200MG-20MG/10ML UDC PO PRN (08:36)
[2019-08-16] MEDS: VALPROATE SODIUM 250MG/5ML UDC NG SCH ×2 (08:36→21:49)
[2019-08-16] MEDS: PANTOPRAZOLE SODIUM 40 MG/VIAL IV SCH (08:36)
[2019-08-16] MEDS: LEVETIRACETAM 1,500 MG in SODIUM CHLORIDE 0.9% 100 ML IV SCH ×2 (08:36→21:49)
[2019-08-16] MEDS: DOCUSATE SODIUM SUGAR FREE 100MG/10ML UDC NG SCH (08:36)
[2019-08-16] MEDS: PHENYTOIN 100 MG/4 ML UDC NG SCH ×3 (08:37→17:07)
[2019-08-16] MEDS: CLONAZEPAM 0.5MG TABLET PO SCH ×2 (08:37→17:07)
[2019-08-16] MEDS: DEXT 5%/0.45% NACL 1000ML 1,000 ML IV SCH ×2 (13:49→23:54)
[2019-08-17] VITALS (51 sets, daily range): BP systolic 108–167; BP diastolic 27–117
[2019-08-17 05:51] LABS: HEMATOCRIT 31.6 % (42.0-52.0); HEMOGLOBIN 10.6 g/dL (14.0-18.0); MEAN CORPUSCULAR HEMOGLOBIN 28.2 pg (28.0-32.0); MEAN CORPUSCULAR VOLUME 83.8 fL (80.0-94.0); PLATELET 283 x1000/uL (130-400); RED BLOOD CELL COUNT 3.77 mill/uL (4.7-6.1); RED CELL DISTRIBUTION WIDTH 15.7 % (11.6-14.6)
[2019-08-17 05:58] LABS: CHLORIDE 102 mEq/L (98-107)
[2019-08-17] MEDS: DOCUSATE SODIUM SUGAR FREE 100MG/10ML UDC NG SCH (08:49)
[2019-08-17] MEDS: PHENYTOIN 100 MG/4 ML UDC NG SCH ×3 (08:49→17:48)
[2019-08-17] MEDS: LEVETIRACETAM 1,500 MG in SODIUM CHLORIDE 0.9% 100 ML IV SCH ×2 (08:49→22:12)
[2019-08-17] MEDS: CLONAZEPAM 0.5MG TABLET PO SCH ×2 (08:49→17:48)
[2019-08-17] MEDS: PANTOPRAZOLE SODIUM 40 MG/VIAL IV SCH (08:49)
[2019-08-17] MEDS: VALPROATE SODIUM 250MG/5ML UDC NG SCH ×2 (09:00→22:04)
[2019-08-17] MEDS: DEXT 5%/0.45% NACL 1000ML 1,000 ML IV SCH ×2 (13:10→22:16)
[2019-08-17] MEDS: ACETAMINOPHEN 325MG TABLET PO PRN (15:07)
[2019-08-17] MEDS: LORAZEPAM 2MG/ML CPJ IV PRN ×2 (15:43→18:04)
[2019-08-17] MEDS ORDERED: LIDOCAINE HCL/PF 1% 10 MG/ML 5ML VIAL INL NR (20:00)
[2019-08-17] MEDS: GUAIFENESIN-DM 200MG-20MG/10ML UDC PO PRN (22:04)
[2019-08-18] VITALS (46 sets, daily range): BP systolic 95–154; BP diastolic 19–115
[2019-08-18] MEDS: LEVETIRACETAM 1,500 MG in SODIUM CHLORIDE 0.9% 100 ML IV SCH ×2 (09:09→21:39)
[2019-08-18] MEDS: DOCUSATE SODIUM SUGAR FREE 100MG/10ML UDC NG SCH (09:32)
[2019-08-18] MEDS: PHENYTOIN 100 MG/4 ML UDC NG SCH ×3 (09:33→17:51)
[2019-08-18] MEDS: VALPROATE SODIUM 250MG/5ML UDC NG SCH ×2 (10:15→21:39)
[2019-08-18] MEDS: LORAZEPAM 2MG/ML CPJ IV PRN (12:16)
[2019-08-18] MEDS: DEXT 5%/0.45% NACL 1000ML 1,000 ML IV SCH (14:12)
[2019-08-18] MEDS ORDERED: NOREPINEPHRINE 32 MG in DEXT 5% WATER 468 ML IV PRN (14:45)
[2019-08-18] MEDS: GUAIFENESIN-DM 200MG-20MG/10ML UDC PO PRN (21:39)
[2019-08-19] VITALS (33 sets, daily range): BP systolic 109–162; BP diastolic 62–100
[2019-08-19] MEDS: DEXT 5%/0.45% NACL 1000ML 1,000 ML IV SCH (04:58)
[2019-08-19 05:40] LABS: BASOPHILS % 0.5 % (0.0-2.0); EOSINOPHILS % 4.3 % (0.0-5.0); HEMATOCRIT. 32.4 % (42.0-52.0); HEMOGLOBIN. 10.7 g/dL (14.0-18.0); LYMPHOCYTES % 19.9 % (20.0-50.0); MEAN CORPUSCULAR HEMOGLOBIN 27.8 pg (28.0-32.0); MEAN CORPUSCULAR VOLUME 84.4 fL (80.0-94.0); MEAN PLATELET VOLUME 8.9 fl (7.4-10.4); MONOCYTES % 8.9 % (2.0-8.0); NEUTROPHILS % 66.4 % (40.0-76.0); PLATELET 273 x1000/uL (130-400); RED BLOOD CELL COUNT 3.84 mill/uL (4.7-6.1); RED CELL DISTRIBUTION WIDTH 16.2 % (11.6-14.6)
[2019-08-19 05:55] LABS: CHLORIDE 103 mEq/L (98-107)
[2019-08-19 06:04] LABS: CREATINE KINASE 414 IU/L (39-308)
[2019-08-19] MEDS: DOCUSATE SODIUM SUGAR FREE 100MG/10ML UDC NG SCH (09:23)
[2019-08-19] MEDS: PHENYTOIN 100 MG/4 ML UDC NG SCH ×3 (09:23→17:39)
[2019-08-19] MEDS: LEVETIRACETAM 1,500 MG in SODIUM CHLORIDE 0.9% 100 ML IV SCH ×2 (09:24→21:03)
[2019-08-19] MEDS: ACETAMINOPHEN 325MG TABLET PO PRN (10:15)
[2019-08-19] MEDS: VALPROATE SODIUM 250MG/5ML UDC NG SCH ×2 (11:44→21:03)
[2019-08-19] MEDS: GUAIFENESIN-DM 200MG-20MG/10ML UDC PO PRN (21:03)
[2019-08-20] VITALS (36 sets, daily range): BP systolic 108–153; BP diastolic 50–95
[2019-08-20] MEDS: LEVETIRACETAM 1,500 MG in SODIUM CHLORIDE 0.9% 100 ML IV SCH ×2 (08:55→21:11)
[2019-08-20] MEDS: VALPROATE SODIUM 250MG/5ML UDC NG SCH ×2 (08:56→21:12)
[2019-08-20] MEDS: PHENYTOIN 100 MG/4 ML UDC NG SCH ×3 (08:56→16:50)
[2019-08-21] VITALS (51 sets, daily range): BP systolic 84–147; BP diastolic 54–92
[2019-08-21] MEDS: VALPROATE SODIUM 250MG/5ML UDC NG SCH ×2 (09:44→20:27)
[2019-08-21] MEDS: PHENYTOIN 100 MG/4 ML UDC NG SCH ×3 (09:44→17:19)
[2019-08-22] VITALS (50 sets, daily range): BP systolic 113–173; BP diastolic 34–106
[2019-08-22] MEDS: PHENYTOIN 100 MG/4 ML UDC NG SCH ×3 (08:13→17:23)
[2019-08-22] MEDS: VALPROATE SODIUM 250MG/5ML UDC NG SCH ×2 (08:14→20:18)
[2019-08-22 11:19] LABS: BG BASE EXCESS 1.9 mmol/L (-2.0-2.0); BG CARBOXYHEMOGLOBIN 0.3 % (0.5-1.5); BG DEOXYHEMOGLOBIN 5.5 % (0.0-5.0); BG HCO3 ACT 27.1 mmol/L (22.0-26.0); BG METHEMOGLOBIN 0.3 % (0.0-1.5); BG OXYGEN SATURATION 94.5 % (92.0-98.5); BG OXYHEMOGLOBIN 93.9 % (94.0-97.0); BG PCO2 45.1 mmHg (35.0-45.0); BG PH 7.397 (7.350-7.450); BG PO2 76.4 mmHg (75.0-100.0); BG SAMPLE SITE RIGHT RADIAL; BG TIDAL VOLUME(mL) 550 mL; BG TOTAL HEMOGLOBIN 11.3 g/dL (12.0-18.0); BG VENT MODE VENT - A/C; BG VENT RATE 12 set
[2019-08-22] MEDS: LORAZEPAM 2MG/ML CPJ IV PRN ×2 (12:13→20:33)
[2019-08-23] VITALS (46 sets, daily range): BP systolic 108–157; BP diastolic 58–88
[2019-08-23] MEDS: LORAZEPAM 2MG/ML CPJ IV PRN ×3 (04:56→23:50)
[2019-08-23] MEDS: PHENYTOIN 100 MG/4 ML UDC NG SCH ×3 (08:26→17:56)
[2019-08-23] MEDS: VALPROATE SODIUM 250MG/5ML UDC NG SCH ×2 (08:26→20:34)
[2019-08-24] VITALS (41 sets, daily range): BP systolic 100–146; BP diastolic 57–88
[2019-08-24] MEDS: LORAZEPAM 2MG/ML CPJ IV PRN ×2 (04:36→23:56)
[2019-08-24] MEDS: VALPROATE SODIUM 250MG/5ML UDC NG SCH ×2 (09:18→21:02)
[2019-08-24] MEDS: PHENYTOIN 100 MG/4 ML UDC NG SCH ×3 (09:18→17:35)
[2019-08-25] VITALS (44 sets, daily range): BP systolic 108–162; BP diastolic 59–110
[2019-08-25] MEDS: LORAZEPAM 2MG/ML CPJ IV PRN ×4 (08:15→22:31)
[2019-08-25] MEDS: PHENYTOIN 100 MG/4 ML UDC NG SCH ×3 (09:57→16:19)
[2019-08-25] MEDS: VALPROATE SODIUM 250MG/5ML UDC NG SCH ×2 (09:58→21:01)
[2019-08-26] VITALS (38 sets, daily range): BP systolic 103–167; BP diastolic 55–94
[2019-08-26 05:55] LABS: CHLORIDE 106 mEq/L (98-107)
[2019-08-26] MEDS: LORAZEPAM 2MG/ML CPJ IV PRN (06:01)
[2019-08-26] MEDS: VALPROATE SODIUM 250MG/5ML UDC NG SCH ×2 (09:00→20:24)
[2019-08-26 10:00] LABS: BASOPHILS % 0.7 % (0.0-2.0); EOSINOPHILS % 5.5 % (0.0-5.0); HEMATOCRIT. 33.6 % (42.0-52.0); HEMOGLOBIN. 11.2 g/dL (14.0-18.0); LYMPHOCYTES % 21.3 % (20.0-50.0); MEAN CORPUSCULAR HEMOGLOBIN 28.3 pg (28.0-32.0); MEAN CORPUSCULAR VOLUME 84.6 fL (80.0-94.0); MEAN PLATELET VOLUME 8.3 fl (7.4-10.4); MONOCYTES % 9.4 % (2.0-8.0); NEUTROPHILS % 63.1 % (40.0-76.0); PLATELET 215 x1000/uL (130-400); RED BLOOD CELL COUNT 3.97 mill/uL (4.7-6.1); RED CELL DISTRIBUTION WIDTH 17.3 % (11.6-14.6)
[2019-08-26] MEDS: PHENYTOIN 100 MG/4 ML UDC NG SCH ×2 (10:17→16:40)
== END 2019-08-26 21:48 | DRG 4 ==
LOC: ER 09:09 → EDBEDREQTM 11:34 → EDBEDREQ 11:34 → ENRESERV 07-20 11:21 → CANRESERV 07-20 11:21 → EDBEDREQSVC 07-20 12:31 → ENRESERV 07-20 15:38 → EDBEDREQ 07-20 15:38 → MICUSO 07-20 17:07
PROVIDERS: ADMIT Hospitalist; ATTEND Hospitalist
PROC: 5A1955Z Respiratory Ventilation, Greater than 96 Consecutive Hours (ICD-10-PCS; principal; 2019-07-20)
PROC: 0BH17EZ Insertion of Endotracheal Airway into Trachea, Via Natural or Artificial Opening (ICD-10-PCS; 2019-07-20)
PROC: 02HV33Z Insertion of Infusion Device into Superior Vena Cava, Percutaneous Approach (ICD-10-PCS; 2019-07-23)
PROC: B548ZZA Ultrasonography of Superior Vena Cava, Guidance (ICD-10-PCS; 2019-07-23)
PROC: 0B110F4 Bypass Trachea to Cutaneous with Tracheostomy Device, Open Approach (ICD-10-PCS; 2019-08-04)
DX: A41.89 Other specified sepsis (principal); U07.1 COVID-19; J96.00 Acute respiratory failure, unspecified whether with hypoxia or hypercapnia; J12.89 Other viral pneumonia; K85.90 Acute pancreatitis without necrosis or infection, unspecified; K92.2 Gastrointestinal hemorrhage, unspecified; G40.911 Epilepsy, unspecified, intractable, with status epilepticus; Z99.11 Dependence on respirator [ventilator] status; C71.9 Malignant neoplasm of brain, unspecified; G93.40 Encephalopathy, unspecified; M62.82 Rhabdomyolysis; D68.59 Other primary thrombophilia; I10 Essential (primary) hypertension; G40.901 Epilepsy, unspecified, not intractable, with status epilepticus; I25.10 Atherosclerotic heart disease of native coronary artery without angina pectoris; F20.9 Schizophrenia, unspecified; K21.9 Gastro-esophageal reflux disease without esophagitis; D18.1 Lymphangioma, any site; E78.5 Hyperlipidemia, unspecified; E66.01 Morbid (severe) obesity due to excess calories; D72.810 Lymphocytopenia; G93.89 Other specified disorders of brain; B97.89 Other viral agents as the cause of diseases classified elsewhere; E78.1 Pure hyperglyceridemia; Z88.0 Allergy status to penicillin; Z79.1 Long term (current) use of non-steroidal anti-inflammatories (NSAID); Z79.899 Other long term (current) drug therapy; Z85.841 Personal history of malignant neoplasm of brain; Z95.828 Presence of other vascular implants and grafts; Z86.718 Personal history of other venous thrombosis and embolism; Z92.21 Personal history of antineoplastic chemotherapy; Z68.37 Body mass index [BMI] 37.0-37.9, adult; Z92.3 Personal history of irradiation
CPT/HCPCS: 31500; 36415; 36600; 71045; 76937; 80048; 80053; 80076; 80165; 80185; 80305; 80320; 81003; 82375; 82542; 82550; 82728; 82805; 82962; 83615; 83735; 83880; 84100; 84478; 84484; 85014; 85018; 85025; 85027; 85379; 86140; 86850; 86900; 87070; 87635; 93005; 94002; 94003; 99285; C1725; C9113; J1165; J1642; J1650; J1953; J1956; J2060; J2250; J2270; J2704; J2920; J3010; J3480; J3490; J7030; J7050; J7060; G0480; U0003-CS